=== PATIENT | female | born 1960 | race Caucasian/White ===

== ENCOUNTER 2016-09-12 11:20 | Emergency (ER) | payer BC ==
[~2016-09-12] VITALS: Ht 162.6 cm; Wt 62.1 kg
[~2016-09-12 11:20] MED LIST: ACHD5005 PO; AMOX500C2 PO; ASP81TEC PO; DIPH25TA82 PO; FLUT16SP22 NS; HYDR-2856 PO; HYDR-34 PO; HYDR-3812 PO; IBP200T PO; LRT10T PO; METH4TAB PO; PNT40TEC PO; PRD10T PO; [UNRECOGNIZED DRUG - CODE] TP
--- NOTE | 2016-09-12 11:35 | ED Chest Pain ---
General Stated Complaint: CHEST PAIN Source: patient Exam Limitations: no limitations History of Present Illness Time seen by provider: 11:32 Initial Comments Sent to ER from Dr. Dr. Riddle's office with reports of chest pain. The chest pain is been present for several months. She denies any shortness of breath or nausea. No personal history of heart disease but her parents have a history of heart disease. She does smoke about 7 cigarettes per day. The pain is not worsened with exertion, however it is worsened with palpation. Aleve seems to help with the pain Timing/Duration: intermittent Severity/Quality: moderate Location: central Radiation: no radiation ASA po CATALOGING ASSISTANT: No NTG SL CATALOGING ASSISTANT: No Allergies and Home Medications Allergies Coded Allergies: No Known Drug Allergies (Verified , 08/08/07) Home Medications Aspirin 81 Mg Tabec, 81 MG PO DAILY, (Reported) Hydrocodone/Acetaminophen 1 Each Tablet, 1 EACH PO Q4H PRN for PAIN, #30 Prescribed by: YAKELIN GARCÍA on 05/12/15 1045 Review of Systems Constitutional: see HPI, No chills, No dizziness, No fever, No malaise, No weakness EENTM: No Symptoms Reported Respiratory: No Symptoms Reported, Denies Cough, Denies Orthopnea, Denies Shortness of Air, Denies SOA With Exertion, Denies SOA at Rest Cardiovascular: See HPI, Chest Pain, Denies Edema, Denies Irregular Heart Rate , Denies Lightheadedness, Denies Palpitations, Denies Syncope Gastrointestinal: No Symptoms Reported Genitourinary: No Symptoms Reported Musculoskeletal: no symptoms reported Skin: no symptoms reported Psychiatric/Neurological: No Symptoms Reported Endocrine: No Symptoms Reported Hematologic/Lymphatic: No Symptoms Reported Past Nurfeir-Njpfab-Arekwx Hx Patient Social History Recent Foreign Travel: No Contact w/Someone Who Travel: No Immunizations Up To Date Tetanus Booster (TDap): Unknown Date of Pneumonia Vaccine: Dec 24, 2014 Surgeries HX Surgeries: Yes Respiratory Hx Respiratory Disorders: No Cardiovascular Hx Cardiac Disorders: No Neurological Hx Neurological Disorders: No Reproductive System Hx Reproductive Disorders: No 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 Genitourinary Hx Genitourinary Disorders: No Gastrointestinal Hx Gastrointestinal Disorders: Yes Gastrointestinal Disorders: Abdominal Hernia Musculoskeletal Hx Musculoskeletal Disorders: No Endocrine Hx Endocrine Disorders: No HEENT HX ENT Disorders: Yes (GLASSES) HEENT Disorders: Cataract Cancer Hx Cancer: No Psychosocial Hx Psychiatric Problems: No Integumentary HX Skin/Integumentary Disorder: No Blood Transfusions Hx Blood Disorders: No Family Medical History Significant Family History: Heart Disease Physical Exam Vital Signs Capillary Refill : General Appearance: No Apparent Distress, WD/WN HEENT: PERRL/EOMI, TMs Normal Neck: Full Range of Motion, Normal Inspection Respiratory: Normal Breath Sounds, No Accessory Muscle Use, No Respiratory Distress Cardiovascular: Regular Rate, Rhythm, Normal Peripheral Pulses, Other (left sternal border fourth intercostal space very tender to palpation and this is the pain that she's been experiencing she states) Gastrointestinal: Non Tender, Soft Extremity: Normal Capillary Refill, Normal Inspection Neurologic/Psychiatric: Alert, Oriented x3 Skin: Normal Color, Warm/Dry Progress/Results/Core Measures Results/Orders My Orders Orders - ODALIS MAYS APRN Cbc With Automated Diff (09/12/16 11:31) Comprehensive Metabolic Panel (09/12/16 11:31) Troponin I (09/12/16 11:31) Progress Note : Progress Note Her EKG is unchanged from prior with no ST segment changes. Departure Impression Impression: Primary Impression: Costochondritis Disposition: 01 HOME, SELF-CARE Condition: Stable Departure-Patient Inst. Decision time for Depature: 11:35 Referrals: GILSON RIDDLE DO (PCP/Family) Primary Care Physician Patient Instructions: Costochondritis (DC) Add. Discharge Instructions: 1. Continue to take Aleve as needed for pain 2. Follow-up with Dr. Dr. Riddle 3. Return to ER for any worsening Copy Copies To 1: GILSON RIDDLE PETER J APRN Sep 12, 2016 11:35
[2016-09-12 11:37] LABS: BASOPHILS % (AUTO) 0 % (0-10); EOSINOPHILS # (AUTO) 0.4 10^3/uL (0.0-0.3); EOSINOPHILS % (AUTO) 8 % (0-10); LYMPHOCYTES # (AUTO) 1.2 X 10^3 (1.0-4.0); LYMPHOCYTES % (AUTO) 26 % (12-44); MEAN CORPUSCULAR HEMOGLOBIN 30 PG (25-34); MEAN CORPUSCULAR HGB CONC 34 G/DL (32-36); MEAN CORPUSCULAR VOLUME 88 FL (80-99); MEAN PLATELET VOLUME 9.3 FL (7.4-10.4); MONOCYTES # (AUTO) 0.3 X 10^3 (0.0-1.0); MONOCYTES % (AUTO) 5 % (0-12); NEUTROPHILS # (AUTO) 2.9 X 10^3 (1.8-7.8); NEUTROPHILS % (AUTO) 61 % (42-75); PLATELET COUNT 185 10^3/uL (130-400); RED BLOOD COUNT 4.14 10^6/uL (4.35-5.85); RED CELL DISTRIBUTION WIDTH 11.8 % (10.0-14.5); WHITE BLOOD COUNT 4.8 10^3/uL (4.3-11.0)
--- NOTE | 2016-09-12 11:53 | Diagnostic Imaging Report ---
PA and lateral views of the chest Indication: Chest pain Findings: The lungs are clear. The heart size is normal. There is no effusion or pneumothorax The mediastinum and jannie appear unremarkable. Impression: Unremarkable study. Dictated by: Dictated on workstation # [id number]
[2016-09-12 11:58] LABS: ALANINE AMINOTRANSFERASE 11 U/L (0-55); ALBUMIN 4.2 GM/DL (3.2-4.5); ANION GAP 9 MMOL/L (5-14); ASPARTATE AMINO TRANSFERASE 17 U/L (5-34); BILIRUBIN,TOTAL 0.7 MG/DL (0.1-1.0); BLOOD UREA NITROGEN 11 MG/DL (7-18); BUN/CREATININE RATIO 13 (0-20); CALCIUM 9.4 MG/DL (8.5-10.1); CARBON DIOXIDE 25 MMOL/L (21-32); CHLORIDE 108 MMOL/L (98-107); CREATININE SERUM 0.88 MG/DL (0.60-1.30); GFR ESTIMATED > 60; GLUCOSE 104 MG/DL (70-105); HEMOLYSIS 6 (-100-29); ICTERUS 0.8 (-100-1.9); LIPEMIA 2 (-100-49); POTASSIUM 3.5 MMOL/L (3.6-5.0); SODIUM 142 MMOL/L (135-145); TOTAL PROTEIN 7.4 GM/DL (6.4-8.2)
[2016-09-12 12:10] LABS: TROPONIN I < 0.30 NG/ML (<0.30)
[2016-09-12 12:35] VITALS: BP 143/77
--- OUTSIDE RECORDS SUMMARY | 2016-09-14 16:16 | XMS REPORT | Continuity of Care Document ---
Author Author [facility] Address Unknown Phone Unavailable Allergies Active Description Code Type Severity Reaction Onset Reported/Identified Relationship to Patient Clinical Status Yes No Known Drug Allergies [id number] Drug Allergy Unknown N/ A 08/08/2007 Medications Problems Date Dx Coded Attending Type Code Diagnosis Diagnosed By 05/13/2008 BROOKLYN INGRAM DO K 354.0 CARPAL TUNNEL SYNDROME 05/13/2008 BROOKLYN INGRAM DO K 536.8 DYSPEPSIA 05/13/2008 BROOKLYN INGRAM DO K 565.0 ANAL FISSURE 05/13/2008 MIGDALIA BEAUCHAMP APRN R 354.0 CARPAL TUNNEL SYNDROME 05/13/2008 MIGDALIA BEAUCHAMP APRN R 536.8 DYSPEPSIA 05/13/2008 QUYNH TAMEZ MIGDALIA R 565.0 ANAL FISSURE 05/13/2008 BROOKLYN INGRAM DO K 354.0 CARPAL TUNNEL SYNDROME 05/13/2008 BROOKLYN INGRAM DO K 536.8 DYSPEPSIA 05/13/2008 RUTH INGRAM DOA K 565.0 ANAL FISSURE 05/13/2008 VIVIAN BEAUCHAMP APRNINA R 354.0 CARPAL TUNNEL SYNDROME 05/13/2008 VIVIAN BEAUCHAMP APRNINA R 536.8 DYSPEPSIA 05/13/2008 VIVIAN BEAUCHAMP APRNINA R 565.0 ANAL FISSURE 12/18/2009 Ot 521.00 12/18/2009 Ot 525.9 10/09/2011 Ot 782.1 10/09/2011 Ot 995.3 03/12/2012 Ot 924.20 03/12/2012 Ot 959.7 03/12/2012 Ot E000.8 03/12/2012 Ot E880.9 07/30/2012 BENJAMIN CAMARA, SAIDA Dacosta Ot 305.1 07/30/2012 BENJAMIN CAMARA, SAIDA Dacosta Ot 599.0 07/30/2012 BENJAMIN CAMARA, SAIDA Dacosta Ot 787.01 07/30/2012 BENJAMIN CAMARA, SAIDA Dacosta Ot 789.03 03/17/2013 INGRAM DO, BROOKLYN K 305.1 TOBACCO ABUSE 03/17/2013 INGRAM DO, BROOKLYN K 786.05 SHORTNESS OF BREATH 03/17/2013 INGRAM DO, BROOKLYN K 786.50 CHEST PAIN 03/17/2013 INGRAM DO, BROOKLYN K V17.49 FAM HX CAD (DISEASE) 03/17/2013 QUYNH MERCHANDISE EXECUTIVE, MIGDALIA R 305.1 TOBACCO ABUSE 03/17/2013 QUYNH MERCHANDISE EXECUTIVE, MIGDALIA R 786.05 SHORTNESS OF BREATH 03/17/2013 QUYNH MERCHANDISE EXECUTIVE, MIGDALIA R 786.50 CHEST PAIN 03/17/2013 QUYNH MERCHANDISE EXECUTIVE, MIGDALIA R V17.49 FAM HX CAD (DISEASE) 03/17/2013 INGRAM DO, BROOKLYN K 305.1 TOBACCO ABUSE 03/17/2013 INGRAM DO, BROOKLYN K 786.05 SHORTNESS OF BREATH 03/17/2013 INGRAM DO, BROOKLYN K 786.50 CHEST PAIN 03/17/2013 INGRAM DO, BROOKLYN K V17.49 FAM HX CAD (DISEASE) 03/17/2013 QUYNH TAMEZ MIGDALIA R 305.1 TOBACCO ABUSE 03/17/2013 QUYNH TAMEZ, MIGDALIA R 786.05 SHORTNESS OF BREATH 03/17/2013 QUYNH MERCHANDISE EXECUTIVE, MIGDALIA R 786.50 CHEST PAIN 03/17/2013 QUYNH TAMEZ MIGDALIA R V17.49 FAM HX CAD (DISEASE) 04/17/2013 ROSY CAMARA [facility], ALI FACP CCDS Ot 276.8 04/17/2013 ROSY CAMARA [facility], ALI FACP CCDS Ot 305.1 04/17/2013 ROSY CAMARA [facility], ALI FACP CCDS Ot 786.50 04/17/2013 ROSY CAMARA [facility], ALI FACP CCDS Ot V03.82 04/17/2013 ROSY CAMARA [facility], ALI FACP CCDS Ot V04.81 04/17/2013 ROSY CAMARA [facility], ALI FACP CCDS Ot V17.3 04/30/2013 MIGDALIA BEAUCHAMP APRN 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 04/30/2013 INGRAM DO, BROOKLYN 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 04/30/2013 VIVIAN BEAUCHAMP APRNINA 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 11/19/2013 VIVIAN BEAUCHAMP APRNINA 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 05/04/2015 ROSY CAMARA FACJOEY FACP CCDS Ot 786.50 05/04/2015 MIGDALIA BEAUCHAMP APRN Ot 793.11 05/12/2015 SUDARSHAN CAMARA, NEO Hernández Ot G56.01 05/12/2015 SUDARSHAN CAMARA, NEO Hernández Ot Z11.2 Procedures Code Description [place] [address] EKG, TRACING (IN-HOUSE) 03/17/2013 52474 OXIMETRY 2012 Cardiolog Joey Pena 03/20/2013 00331 ECHO 2D 2013 38510 XRAY CHEST 2 VIEW 11/06/2013 65093 EKG, TRACING 14748 LIPID PANEL 11/06 04367 MAGNESIUM 2013 74003 CBC 11/06/2013 63812 CMP 11/06/2013 1225771 GFR CALC (RESULT ONLY) 11/06/2013 86871 TSH 11/06/2013 24040 MAMMOGRAM, SCREENING 11/12/[address] CHEST W/DYE 23090 NUCLEAR STRESS TESTING 11/19/2013 22938 OXIMETRY 2013 Results Test Result Range Complete blood count (CBC) with automated white blood cell (WBC) differential - 09/12/16 11:27 Blood leukocytes automated count (number/volume) 4.8 10*3/ uL 4.3-11.0 Blood erythrocytes automated count (number/volume) 4.14 10*6 /uL 4.35-5.85 Venous blood hemoglobin measurement (mass/volume) 12.4 g/dL 11.5-16.0 Blood hematocrit (volume fraction) 36 % 35-52 Automated erythrocyte mean corpuscular volume 88 [foz_us] 80-99 Automated erythrocyte mean corpuscular hemoglobin (mass per erythrocyte) 30 pg 25-34 Automated erythrocyte mean corpuscular hemoglobin concentration measurement ( mass/volume) 34 g/dL 32-36 Automated erythrocyte distribution width ratio 11.8 % 10.0-14.5 Automated blood platelet count (count/volume) 185 10*3/uL 130-400 Automated blood platelet mean volume measurement 9.3 [foz_us ] 7.4-10.4 Automated blood neutrophils/100 leukocytes 61 % 42-75 Automated blood lymphocytes/100 leukocytes 26 % 12-44 Blood monocytes/100 leukocytes 5 % 0-12 Automated blood eosinophils/100 leukocytes 8 % 0-10 Automated blood basophils/100 leukocytes 0 % 0-10 Blood neutrophils automated count (number/volume) 2.9 10*3 1.8-7.8 Blood lymphocytes automated count (number/volume) 1.2 10*3 1.0-4.0 Blood monocytes automated count (number/volume) 0.3 10*3 0.0-1.0 Automated eosinophil count 0.4 10*3/uL 0.0-0.3 Automated blood basophil count (count/volume) 0.0 10*3/uL 0.0-0.1 Comprehensive metabolic panel - 09/12/16 11:27 Serum or plasma sodium measurement (moles/volume) 142 mmol/ L 135-145 Serum or plasma potassium measurement (moles/volume) 3.5 mmol/L 3.6-5.0 Serum or plasma chloride measurement (moles/volume) 108 mmol /L 98-107 Carbon dioxide 25 mmol/L 21-32 Serum or plasma anion gap determination (moles/volume) 9 mmol/L 5-14 Serum or plasma urea nitrogen measurement (mass/volume) 11 mg/dL 7-18 Serum or plasma creatinine measurement (mass/volume) 0.88 mg /dL 0.60-1.30 Serum or plasma urea nitrogen/creatinine mass ratio 13 0-20 Serum or plasma creatinine measurement with calculation of estimated glomerular filtration rate > NRG Serum or plasma glucose measurement (mass/volume) 104 mg/dL 70-105 Serum or plasma calcium measurement (mass/volume) 9.4 mg/dL 8.5-10.1 Serum or plasma total bilirubin measurement (mass/volume) 0.7 mg/dL 0.1-1.0 Serum or plasma alkaline phosphatase measurement (enzymatic activity/volume) 68 U/L 40-136 Serum or plasma aspartate aminotransferase measurement (enzymatic activity/ volume) 17 U/L 5-34 Serum or plasma alanine aminotransferase measurement (enzymatic activity/volume ) 11 U/L 0-55 Serum or plasma protein measurement (mass/volume) 7.4 g/dL 6.4-8.2 Serum or plasma albumin measurement (mass/volume) 4.2 g/dL 3.2-4.5 Serum or plasma troponin i.cardiac measurement (mass/volume) - 06/20/17 11:27 Serum or plasma troponin i.cardiac measurement (mass/volume) < ng/mL <0.30 Encounters ACCT No. Visit Date/Time Discharge Status Pt. Type Provider Facility Loc./Unit Complaint [id number] 11/19/2013 08:24:00 11/19/2013 23: 59:59 [facility] Outpatient MIGDALIA BEAUCHAMP APRN [id number] 11/12/2013 08:21:00 11/12/2013 23: 59:59 [facility] Outpatient BROOKLYN INGRAM DO [id number] 04/30/2013 08:52:00 04/30/2013 23: 59:59 [facility] Outpatient MIGDALIA BEAUCHAMP APRN [id number] 03/17/2013 14:48:00 03/17/2013 23: 59:59 [facility] Outpatient BROOKLYN INGRAM DO
== END 2016-09-12 12:35 | disposition home or self-care (01) ==
LOC: EDUNIT# 11:20 → ER 11:23
DX: M94.0 Chondrocostal junction syndrome [Tietze] (principal); F17.210 Nicotine dependence, cigarettes, uncomplicated; Z87.898 Personal history of other specified conditions; Z82.49 Family history of ischemic heart disease and other diseases of the circulatory system; Z79.82 Long term (current) use of aspirin
CPT/HCPCS: 36415; 71020; 80053; 84484; 85025; 93005

== ENCOUNTER 2017-10-01 19:42 | Emergency (ER) | payer BC, OTHER ==
[~2017-10-01] VITALS: Ht 162.6 cm; Wt 62.4 kg
[~2017-10-01 19:42] MED LIST changes: -HYDR-3812 PO
--- NOTE | 2017-10-01 19:55 | ED Chest Pain ---
General Chief Complaint: Chest Pain Stated Complaint: POSS REACTION TO NEW MED Nursing Triage Note: patient reports chest pain radiating to L neck starting at about 1500 Nursing Sepsis Screen: No Definite Risk Source: patient Exam Limitations: no limitations History of Present Illness Date Seen by Provider: Oct 01, 2017 Time Seen by Provider: 19:52 Initial Comments to ER complaint by her daughter with reports of left sided chest pain. She is concerned this may be a reaction to prednisone that she started earlier today, prescribed by [facility] for an itchy rash to face and legs believed to be poison mejia. She took the prednisone at about 2:30 and at about 3:30 she developed this left-sided chest and neck pain. The pain is to the left side of the chest, sharp in nature, worsens with deep breathing.. She has no known personal history of heart disease but she does have family history of heart disease.She is a smoker of about one pack of cigarettes per day.She's had no associated symptoms such as shortness of breath diaphoresis or nausea. 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 NTG SL OIL WELL GUN PERFORATOR OPERATOR: No Allergies and Home Medications Allergies Coded Allergies: No Known Drug Allergies (Verified , 08/08/07) Patient Home Medication List Home Medication List Reviewed: Yes Review of Systems Constitutional: see HPI EENTM: No Symptoms Reported Respiratory: No Symptoms Reported Cardiovascular: See HPI, Chest Pain Gastrointestinal: No Symptoms Reported Genitourinary: No Symptoms Reported Musculoskeletal: no symptoms reported Skin: no symptoms reported Past Milbdez-Ionthl-Xqgujv Hx Patient Social History Alcohol Use: Denies Use Recreational Drug Use: No Smoking Status: Current Everyday Smoker Type Used: Cigarettes 2nd Hand Smoke Exposure: Yes Recent Foreign Travel: No Contact w/Someone Who Travel: No Recent Infectious Disease Expo: No Recent Hopitalizations: No Immunizations Up To Date Tetanus Booster (TDap): Unknown Date of Pneumonia Vaccine: Dec 24, 2014 Seasonal Allergies Seasonal Allergies: No Past Medical History Surgeries: Yes (HYSTERECTOMY) Respiratory: No Cardiac: No Neurological: No Reproductive Disorders: No 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 Sexually Transmitted Disease: Yes Genitourinary: No Gastrointestinal: Yes Abdominal Hernia Musculoskeletal: No Endocrine: No HEENT: No Cataract Cancer: No Psychosocial: No Integumentary: No Blood Disorders: No Family Medical History Heart Disease Physical Exam Vital Signs Vital Signs - First Documented 10/01/17 10/01/17 19:47 19:55 Temp 98.1 Pulse 75 Resp 15 B/P (MAP) 159/77 (104) Pulse Ox 100 O2 Delivery Room Air Capillary Refill : Less Than 3 Seconds Height, Weight, BMI Height: 5', 4.00" Weight: 137lbs 8.0oz, [id number] Method:Stated ,23.51BMI General Appearance: No Apparent Distress, WD/WN HEENT: PERRL/EOMI, TMs Normal Neck: Full Range of Motion, Normal Inspection Respiratory: Lungs Clear, Normal Breath Sounds, No Accessory Muscle Use, No Respiratory Distress, Other (her left chest wall laterally over the fifth and sixth intercostal spaces very tender to palpation and this does reproduce the pain she's been having.) Cardiovascular: Regular Rate, Rhythm, Normal Peripheral Pulses Gastrointestinal: Normal Bowel Sounds, Non Tender, Soft Extremity: Normal Capillary Refill, Normal Inspection Neurologic/Psychiatric: Alert, Oriented x3 Skin: Normal Color, Warm/Dry Progress/Results/Core Measures Results/Orders Lab Results Laboratory Tests Test 10/01/17 19:50 Range/Units White Blood Count 5.7 4.3-11.0 10^3/uL Red Blood Count 4.21 L 4.35-5.85 10^6/uL Hemoglobin 13.0 11.5-16.0 G/DL Hematocrit 37 35-52 % Mean Corpuscular Volume 87 80-99 FL Mean Corpuscular Hemoglobin 31 25-34 PG Mean Corpuscular Hemoglobin Concent 35 32-36 G/DL Red Cell Distribution Width 12.6 10.0-14.5 % Platelet Count 205 130-400 10^3/uL Mean Platelet Volume 9.5 7.4-10.4 FL Neutrophils (%) (Auto) 85 H 42-75 % Lymphocytes (%) (Auto) 12 12-44 % Monocytes (%) (Auto) 1 0-12 % Eosinophils (%) (Auto) 1 0-10 % Basophils (%) (Auto) 0 0-10 % Neutrophils # (Auto) 4.9 1.8-7.8 X 10^3 Lymphocytes # (Auto) 0.7 L 1.0-4.0 X 10^3 Monocytes # (Auto) 0.1 0.0-1.0 X 10^3 Eosinophils # (Auto) 0.1 0.0-0.3 10^3/uL Basophils # (Auto) 0.0 0.0-0.1 10^3/uL Prothrombin Time 13.8 12.2-14.7 SEC INR Comment 1.1 0.8-1.4 Activated Partial Thromboplast Time 30 24-35 SEC Sodium Level 142 135-145 MMOL/L Potassium Level 4.0 3.6-5.0 MMOL/L Chloride Level 108 H 98-107 MMOL/L Carbon Dioxide Level 24 21-32 MMOL/L Anion Gap 10 5-14 MMOL/L Blood Urea Nitrogen 13 7-18 MG/DL Creatinine 1.02 0.60-1.30 MG/DL Estimat Glomerular Filtration Rate 56 BUN/Creatinine Ratio 13 Glucose Level 127 H 70-105 MG/DL Calcium Level 9.9 8.5-10.1 MG/DL Magnesium Level 2.5 H 1.8-2.4 MG/DL Total Bilirubin 0.6 0.1-1.0 MG/DL Aspartate Amino Transf (AST/SGOT) 17 5-34 U/L Alanine Aminotransferase (ALT/SGPT) 12 0-55 U/L Alkaline Phosphatase 77 40-136 U/L Myoglobin 54.9 10.0-92.0 NG/ML Troponin I < 0.30 <0.30 NG/ML Total Protein 7.9 6.4-8.2 GM/DL Albumin 4.7 H 3.2-4.5 GM/DL My Orders Orders - ODALIS MAYS CONSUMER RELATIONS SPECIALIST Cbc With Automated Diff (10/01/17 19:51) Magnesium (10/01/17 19:51) Chest 1 View, Ap/Pa Only (10/01/17 19:51) Ekg Tracing (10/01/17 19:51) Cardiac Profile 1 (10/01/17 19:51) Comprehensive Metabolic Panel (10/01/17 19:51) Myoglobin Serum (10/01/17 19:51) Protime With Inr (10/01/17 19:51) Partial Thromboplastin Time (10/01/17 19:51) O2 (10/01/17 19:51) Monitor-Rhythm Ecg Trace Only (10/01/17 19:51) Lipid Panel (10/02/17 06:00) Aspirin Chewable Tablet (Baby Aspirin Ch (10/01/17 20:00) Saline Lock/Iv-Start (10/01/17 19:51) Medications Given in ED Current Medications Medications Dose Ordered Sig/Mirta Route Start Time Stop Time Status Last Admin Dose Admin Aspirin 324 mg ONCE ONCE PO 10/01/17 20:00 10/01/17 20:01 DC 10/01/17 19:55 324 MG Vital Signs/I&O 10/01/17 10/01/17 10/01/17 19:47 19:55 19:56 Temp 98.1 Pulse 75 Resp 15 B/P (MAP) 159/77 (104) Pulse Ox 100 O2 Delivery Room Air Room Air Blood Pressure Mean: 104 Diagnostic Imaging Diagonstic Imaging: Xray Plain Films/CT/US/NM/MRI: chest Comments NAME: JOSE LINARES [facility] REC#: [id number] PT STATUS: REG ER : 1960 PHYSICIAN: ODALIS MAYS CONSUMER RELATIONS SPECIALIST ADMIT DATE: 10/01/17/ER Signed Date of Exam:10/01/17 CHEST 1 VIEW, AP/PA ONLY INDICATION: Chest pain Frontal chest obtained at 8:03 p.m. and compared to 09/12/16. Heart and mediastinal silhouette are normal in appearance. The lungs are clear. There is no pneumothorax or pleural fluid. IMPRESSION: Negative chest. Dictated by: Dictated on workstation # [id number] Dict: 10/01/172012 Trans: 10/01/172018 [id number] [id number] Interpreted by: SAIDA REYEZ MD Electronically signed by: SAIDA REYEZ MD 10/01/17 2019 Departure Communication (Admissions) her chest pain has been constant for 4 hours and she still has a negative troponin. It is worsened with deep breathing and with palpation. Impression Primary Impression: Chest pain Disposition: 01 HOME, SELF-CARE Condition: Stable Departure-Patient Inst. Decision time for Depature: 20:25 Referrals: GILSON RIDDLE DO (PCP/Family) Primary Care Physician CODI GALLEGOS MD FACP FACC CCDS Vernell DNA MD, BASHAR J MD Patient Instructions: Chest Pain (DC) Add. Discharge Instructions: 1. Call one of the cardiologists tomorrow to make an appointment to be seen for further evaluation. Return to ER for any worsening chest pain, shortness of breath, nausea, sweating or any other concerns. You may stop taking the prednisone and just apply topical steroids. All discharge instructions reviewed with patient and/or family. Voiced understanding. ODALIS MAYS APRN Oct 01, 2017 19:55
[2017-10-01] MEDS ORDERED: PRD10T (19:57)
[2017-10-01] MEDS ORDERED: HYDR453.3 (19:57)
[2017-10-01 19:58] LABS: BASOPHILS % (AUTO) 0 % (0-10); EOSINOPHILS # (AUTO) 0.1 10^3/uL (0.0-0.3); EOSINOPHILS % (AUTO) 1 % (0-10); HEMATOCRIT 37 % (35-52); LYMPHOCYTES # (AUTO) 0.7 X 10^3 (1.0-4.0); LYMPHOCYTES % (AUTO) 12 % (12-44); MEAN CORPUSCULAR HEMOGLOBIN 31 PG (25-34); MEAN CORPUSCULAR HGB CONC 35 G/DL (32-36); MEAN CORPUSCULAR VOLUME 87 FL (80-99); MEAN PLATELET VOLUME 9.5 FL (7.4-10.4); MONOCYTES # (AUTO) 0.1 X 10^3 (0.0-1.0); MONOCYTES % (AUTO) 1 % (0-12); NEUTROPHILS # (AUTO) 4.9 X 10^3 (1.8-7.8); NEUTROPHILS % (AUTO) 85 % (42-75); PLATELET COUNT 205 10^3/uL (130-400); RED BLOOD COUNT 4.21 10^6/uL (4.35-5.85); RED CELL DISTRIBUTION WIDTH 12.6 % (10.0-14.5); WHITE BLOOD COUNT 5.7 10^3/uL (4.3-11.0)
[2017-10-01] MEDS ORDERED: ASPIRIN 81 MG CHEW (CHILDREN'S ASA) PO ONE (20:00)
[2017-10-01 20:16] LABS: ALANINE AMINOTRANSFERASE 12 U/L (0-55); ALBUMIN 4.7 GM/DL (3.2-4.5); ALKALINE PHOSPHATASE 77 U/L (40-136); BILIRUBIN,TOTAL 0.6 MG/DL (0.1-1.0); BUN/CREATININE RATIO 13; CALCIUM 9.9 MG/DL (8.5-10.1); CARBON DIOXIDE 24 MMOL/L (21-32); CHLORIDE 108 MMOL/L (98-107); CREATININE SERUM 1.02 MG/DL (0.60-1.30); GFR ESTIMATED 56; GLUCOSE 127 MG/DL (70-105); MAGNESIUM 2.5 MG/DL (1.8-2.4); SODIUM 142 MMOL/L (135-145); TOTAL PROTEIN 7.9 GM/DL (6.4-8.2)
--- NOTE | 2017-10-01 20:16 | Diagnostic Imaging Report ---
INDICATION: Chest pain Frontal chest obtained at 8:03 p.m. and compared to 09/12/16. Heart and mediastinal silhouette are normal in appearance. The lungs are clear. There is no pneumothorax or pleural fluid. IMPRESSION: Negative chest. Dictated by: Dictated on workstation # [id number]
[2017-10-01 20:20] LABS: INR 1.1 (0.8-1.4); PROTHROMBIN TIME PATIENT 13.8 SEC (12.2-14.7)
[2017-10-01 20:22] LABS: MYOGLOBIN SERUM 54.9 NG/ML (10.0-92.0)
[2017-10-01 20:29] VITALS: BP 123/69
== END 2017-10-01 20:33 | disposition home or self-care (01) ==
LOC: EDUNIT# 19:42 → ER 19:43
DX: R07.89 Other chest pain (principal); F17.210 Nicotine dependence, cigarettes, uncomplicated; Z90.710 Acquired absence of both cervix and uterus
CPT/HCPCS: 36415; 71045; 80053; 83735; 83874; 84484; 85025; 85610; 85730; 93005; 93041

== ENCOUNTER 2018-03-27 05:56 | Outpatient (CLI) | payer BC ==
[~2018-03-27] VITALS: Ht 162.6 cm; Wt 62.4 kg
[~2018-03-27 05:56] MED LIST changes: +HYDR453.3; +PRD10T
== END 2018-03-27 13:28 | disposition home or self-care (01) ==
LOC: PREOP 05:56
PROVIDERS: ATTEND Surgery
DX: Z01.818 Encounter for other preprocedural examination (principal)

== ENCOUNTER 2018-04-02 09:06 | Day surgery (SDC) | payer BC ==
[~2018-04-02] VITALS: Ht 162.6 cm; Wt 62.4 kg
[2018-04-02 09:10] VITALS: BP 144/80
[2018-04-02] MEDS ORDERED: LACTATED RINGERS 1,000 ML IV ONE (09:12)
--- OUTSIDE RECORDS SUMMARY | 2018-04-02 09:13 | XMS REPORT | Continuity of Care Document ---
Author Author [facility] Address Unknown Phone Unavailable Allergies Active Description Code Type Severity Reaction Onset Reported/Identified Relationship to Patient Clinical Status Yes No Known Drug Allergies [id number] Drug Allergy Unknown N/A 03/27/2018 Medications There is no data. Problems Date Dx Coded Attending Type Code Diagnosis Diagnosed By 05/13/2008 BROOKLYN INGRAM DO 354.0 CARPAL TUNNEL SYNDROME 05/13/2008 BROOKLYN INGRAM DO 536.8 DYSPEPSIA 05/13/2008 BROOKLYN INGRAM DO K 565.0 ANAL FISSURE 05/13/2008 MIGDALIA BEAUCHAMP APRN R 354.0 CARPAL TUNNEL SYNDROME 05/13/2008 MIGDALIA BEAUCHAMP APRN R 536.8 DYSPEPSIA 05/13/2008 VIVIAN BEAUCHAMP APRNINA R 565.0 ANAL FISSURE 05/13/2008 BROOKLYN INGRAM DO K 354.0 CARPAL TUNNEL SYNDROME 05/13/2008 BROOKLYN INGRAM DO K 536.8 DYSPEPSIA 05/13/2008 BROOKLYN INGRAM DO K 565.0 ANAL FISSURE 05/13/2008 MIGDALIA BEAUCHAMP APRN R 354.0 CARPAL TUNNEL SYNDROME 05/13/2008 MIGDALIA BEAUCHAMP APRN R 536.8 DYSPEPSIA 05/13/2008 MIGDALIA BEAUCHAMP APRN R 565.0 ANAL FISSURE 12/18/2009 Ot 521.00 12/18/2009 Ot 525.9 10/09/2011 Ot 782.1 10/09/2011 Ot 995.3 03/12/2012 Ot 924.20 03/12/2012 Ot 959.7 03/12/2012 Ot E000.8 03/12/2012 Ot E880.9 07/30/2012 BENJAMIN CAMARA, SAIDA Dacosta Ot 305.1 07/30/2012 BENJAMIN CAMARA, SAIDA Dacosta Ot 599.0 07/30/2012 BENJAMIN CAMARA, SAIDA Dacosta Ot 787.01 07/30/2012 BENJAMIN CAMARA, SAIDA S Ot 789.03 03/17/2013 INGRAM DO, BROOKLYN K 305.1 TOBACCO ABUSE 03/17/2013 INGRAM DO, BROOKLYN K 786.05 SHORTNESS OF BREATH 03/17/2013 INGRAM DO, BROOKLYN K 786.50 CHEST PAIN 03/17/2013 INGRAM DO, BROOKLYN K V17.49 FAM HX CAD (DISEASE) 03/17/2013 QUYNH STUNT PERSON, MIGDALIA R 305.1 TOBACCO ABUSE 03/17/2013 QUYNH STUNT PERSON, MIGDALIA R 786.05 SHORTNESS OF BREATH 03/17/2013 QUYNH STUNT PERSON, MIGDALIA R 786.50 CHEST PAIN 03/17/2013 QUYNH STUNT PERSON, MIGDALIA R V17.49 FAM HX CAD (DISEASE) 03/17/2013 INGRAM DO, BROOKLYN K 305.1 TOBACCO ABUSE 03/17/2013 INGRAM DO, BROOKLYN K 786.05 SHORTNESS OF BREATH 03/17/2013 INGRAM DO, BROOKLYN K 786.50 CHEST PAIN 03/17/2013 INGRAM DO, BROOKLYN K V17.49 FAM HX CAD (DISEASE) 03/17/2013 QUYNH STUNT PERSON, MIGDALIA R 305.1 TOBACCO ABUSE 03/17/2013 QUYNH STUNT PERSON, MIGDALIA R 786.05 SHORTNESS OF BREATH 03/17/2013 QUYNH TAMEZ, MIGDALIA R 786.50 CHEST PAIN 03/17/2013 QUYNH TAMEZ MIGDALIA R V17.49 FAM HX CAD (DISEASE) 04/17/2013 ROSY CAMARA [facility], ALI FACP CCDS Ot 276.8 04/17/2013 ROSY CAMARA [facility], ALI FACP CCDS Ot 305.1 04/17/2013 ROSY CAMARA [facility], ALI FACP CCDS Ot 786.50 04/17/2013 ROSY CAMARA FAC, ALI FACP CCDS Ot V03.82 04/17/2013 ROSY CAMARA FAC, ALI FACP CCDS Ot V04.81 04/17/2013 ROSY CAMARA [facility], ALI FACP CCDS Ot V17.3 04/30/2013 VIVIAN BEAUCHAMP APRNINA 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 04/30/2013 INGRAM DO, BROOKLYN 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 04/30/2013 QUYNH TAMEZ MIGDALIA 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 11/19/2013 MIGDALIA BEAUCHAMP APRN 793.11 SOLITARY PULMONARY NODULE 05/04/2015 ROSY CAMARA [facility], ALI FACP CCDS Ot 786.50 05/04/2015 MIGDALIA BEAUCHAMP APRN Ot 793.11 05/12/2015 SUDARSHAN CAMARA, NEO Hernández Ot G56.01 CARPAL TUNNEL SYNDROME, RIGHT UPPER LIMB 05/12/2015 SUDARSHAN CAMARA, NEO Hernández Ot Z11.2 ENCOUNTER FOR SCREENING FOR OTHER BACTER 09/12/2016 ODALIS MAYS APRN Ot F17.210 NICOTINE DEPENDENCE, CIGARETTES, UNCOMPL 09/12/2016 ODALIS MAYS APRN Ot M94.0 CHONDROCOSTAL JUNCTION SYNDROME [TIETZE] 09/12/2016 ODALIS MAYS APRN Ot R07.9 CHEST PAIN, UNSPECIFIED 09/12/2016 ODALIS MAYS APRN Ot Z79.82 LONG-TERM (CURRENT) USE OF ASPIRIN 09/12/2016 ODALIS MAYS APRN Ot Z82.49 FAMILY HX OF ISCHEM HEART DIS AND OTH DI 09/12/2016 ODALIS MAYS APRN Ot Z87.898 PERSONAL HISTORY OF OTHER SPECIFIED COND 09/14/2016 ODALIS MAYS APRN Ot F17.210 NICOTINE DEPENDENCE, CIGARETTES, UNCOMPL 09/14/2016 ODALIS MAYS APRN Ot M94.0 CHONDROCOSTAL JUNCTION SYNDROME [TIETZE] 09/14/2016 ODALIS MAYS APRN Ot R07.9 CHEST PAIN, UNSPECIFIED 09/14/2016 ODALIS MAYS APRN Ot Z79.82 LONG-TERM (CURRENT) USE OF ASPIRIN 09/14/2016 ODALIS MAYS APRN Ot Z82.49 FAMILY HX OF ISCHEM HEART DIS AND OTH DI 09/14/2016 ODALIS MAYS APRN Ot Z87.898 PERSONAL HISTORY OF OTHER SPECIFIED COND 10/01/2017 ODALIS MAYS APRN Ot F17.210 NICOTINE DEPENDENCE, CIGARETTES, UNCOMPL 10/01/2017 DOALIS MAYS APRN Ot R07.89 OTHER CHEST PAIN 10/01/2017 ODALIS MAYS APRN Ot Z90.710 ACQUIRED ABSENCE OF BOTH CERVIX AND UTER 10/03/2017 ODALIS MAYS APRN Ot F17.210 NICOTINE DEPENDENCE, CIGARETTES, UNCOMPL 10/03/2017 ODALIS MAYS APRN Ot R07.89 OTHER CHEST PAIN 10/03/2017 ODALIS MAYS APRN Ot Z90.710 ACQUIRED ABSENCE OF BOTH CERVIX AND UTER 03/27/2018 ALEX SEPULVEDA DO Ot Z01.818 ENCOUNTER FOR OTHER PREPROCEDURAL EXAMIN Procedures Code Description [place] [address] EKG, TRACING (IN-HOUSE) 03/17/2013 95974 OXIMETRY 03/17/2013 Cardiolog Joey Gallegos 03/20/2013 28253 ECHO 2D 04/30/2013 61037 XRAY CHEST 2 VIEW 11/06/2013 14154 EKG, TRACING 11/06/2013 11318 LIPID PANEL 11/06/2013 56627 MAGNESIUM 11/06/2013 21924 CBC 11/06/2013 21150 CMP 11/06/2013 3728932 GFR CALC (RESULT ONLY) 11/06/2013 97681 TSH 11/06/2013 22483 MAMMOGRAM, SCREENING 11/12/[address] CHEST W/DYE 11/19/2013 32917 NUCLEAR STRESS TESTING 11/19/2013 02873 OXIMETRY 11/19/2013 Results Test Result Range Complete blood count (CBC) with automated white blood cell (WBC) differential - 09/12/16 11:27 Blood leukocytes automated count (number/volume) 4.8 10*3/uL 4.3-11.0 Blood erythrocytes automated count (number/volume) 4.14 10*6/uL 4.35-5.85 Venous blood hemoglobin measurement (mass/volume) 12.4 [...] Automated blood platelet mean volume measurement 9.3 [foz_us] 7.4-10.4 Automated blood neutrophils/100 leukocytes 61 % [...] Serum or plasma sodium measurement (moles/volume) 142 mmol/L 135-145 Serum or plasma potassium measurement (moles/volume) 3.5 mmol/L 3.6-5.0 Serum or plasma chloride measurement (moles/volume) 108 mmol/L 98-107 Carbon dioxide 25 mmol/L 21-32 Serum or plasma anion gap determination (moles/volume) 9 mmol/L 5-14 Serum or plasma urea nitrogen measurement (mass/volume) 11 mg/dL 7-18 Serum or plasma creatinine measurement (mass/volume) 0.88 mg/dL 0.60-1.30 Serum or plasma urea nitrogen/creatinine mass ratio 13 0 -20 Serum or plasma creatinine measurement with calculation [...] or plasma troponin i.cardiac measurement (mass/volume) - 09/12/16 11:27 Serum or plasma troponin i.cardiac measurement (mass/volume) < ng/ mL <0.30 Complete blood count (CBC) with automated white blood cell (WBC) differential - 10/01/17 19:50 Blood leukocytes automated count (number/volume) 5.7 10*3/uL 4.3-11.0 Blood erythrocytes automated count (number/volume) 4.21 10*6/uL 4.35-5.85 Venous blood hemoglobin measurement (mass/volume) 13.0 g/dL 11.5-16.0 Blood hematocrit (volume fraction) 37 % 35-52 Automated erythrocyte mean corpuscular volume 87 [foz_us] 80-99 Automated erythrocyte mean corpuscular hemoglobin (mass per erythrocyte) 31 pg 25-34 Automated erythrocyte mean corpuscular hemoglobin concentration measurement ( mass/volume) 35 g/dL 32-36 Automated erythrocyte distribution width ratio 12.6 % 10.0-14.5 Automated blood platelet count (count/volume) 205 10*3/uL 130-400 Automated blood platelet mean volume measurement 9.5 [foz_us] 7.4-10.4 Automated blood neutrophils/100 leukocytes 85 % 42-75 Automated blood lymphocytes/100 leukocytes 12 % 12-44 Blood monocytes/100 leukocytes 1 % 0-12 Automated blood eosinophils/100 leukocytes 1 % 0-10 Automated blood basophils/100 leukocytes 0 % 0-10 Blood neutrophils automated count (number/volume) 4.9 10*3 1.8-7.8 Blood lymphocytes automated count (number/volume) 0.7 10*3 1.0-4.0 Blood monocytes automated count (number/volume) 0.1 10*3 0.0-1.0 Automated eosinophil count 0.1 10*3/uL 0.0-0.3 Automated blood basophil count (count/volume) 0.0 10*3/uL 0.0-0.1 Comprehensive metabolic panel - 10/01/17 19:50 Serum or plasma sodium measurement (moles/volume) 142 mmol/L 135-145 Serum or plasma potassium measurement (moles/volume) 4.0 mmol/L 3.6-5.0 Serum or plasma chloride measurement (moles/volume) 108 mmol/L 98-107 Carbon dioxide 24 mmol/L 21-32 Serum or plasma anion gap determination (moles/volume) 10 mmol/L 5-14 Serum or plasma urea nitrogen measurement (mass/volume) 13 mg/dL 7-18 Serum or plasma creatinine measurement (mass/volume) 1.02 mg/dL 0.60-1.30 Serum or plasma urea nitrogen/creatinine mass ratio 13 NRG Serum or plasma creatinine measurement with calculation of estimated glomerular filtration rate 56 NRG Serum or plasma glucose measurement (mass/volume) 127 mg/dL 70-105 Serum or plasma calcium measurement (mass/volume) 9.9 mg/dL 8.5-10.1 Serum or plasma total bilirubin measurement (mass/volume) 0.6 mg/dL 0.1-1.0 Serum or plasma alkaline phosphatase measurement (enzymatic activity/volume) 77 U/L 40-136 Serum or plasma aspartate aminotransferase measurement (enzymatic activity/ volume) 17 U/L 5-34 Serum or plasma alanine aminotransferase measurement (enzymatic activity/volume ) 12 U/L 0-55 Serum or plasma protein measurement (mass/volume) 7.9 g/dL 6.4-8.2 Serum or plasma albumin measurement (mass/volume) 4.7 g/dL 3.2-4.5 Magnesium - 10/01/17 19:50 Magnesium 2.5 mg/dL 1.8-2.4 Serum or plasma troponin i.cardiac measurement (mass/volume) - 10/01/17 19:50 Serum or plasma troponin i.cardiac measurement (mass/volume) < ng/ mL <0.30 Myoglobin, serum - 10/01/17 19:50 Myoglobin, serum 54.9 ng/mL 10.0-92.0 PT panel in platelet poor plasma by coagulation assay - 10/01/17 19:50 Prothrombin time (PT) in platelet poor plasma by coagulation assay 13.8 s 12.2-14.7 INR in platelet poor plasma or blood by coagulation assay 1.1 0.8-1.4 Activated partial thromboplastin time (aPTT) in platelet poor plasma bycoagulation assay - 10/01/17 19:50 Activated partial thromboplastin time (aPTT) in platelet poor plasma bycoagulation assay 30 s 24-35 Encounters ACCT No. Visit Date/Time Discharge Status Pt. Type Provider Facility Loc./Unit Complaint [id number] 11/19/2013 08:24:00 11/19/2013 23:59:59 [facility] Outpatient MIGDALIA BEAUCHAMP APRN [id number] 11/12/2013 08:21:00 11/12/2013 23:59:59 [facility] Outpatient BROOKLYN INGRAM DO [id number] 04/30/2013 08:52:00 04/30/2013 23:59:59 CLS Outpatient MIGDALIA BEAUCHAMP APRN [id number] 03/17/2013 14:48:00 03/17/2013 23:59:59 CLS Outpatient BROOKLYN INGRAM DO [id number] 03/27/2018 05:56:00 03/27/2018 13:28:00 DIS Outpatient ALEX SEPULVEDA DO [facility] PREOP COLONOSCOPY/EGD [id number] 10/01/2017 19:43:00 10/01/2017 20:33:00 DIS Emergency ODALIS MAYS APRN [facility] ER POSS REACTION TO NEW MED [id number] 09/12/2016 11:23:00 09/12/2016 12:35:00 DIS Emergency ODALIS MAYS APRN [facility] ER CHEST PAIN [id number] 05/12/2015 08:04:00 05/12/2015 11:15:00 DIS Outpatient NEO HEATON MD [facility] RIGHT CARPEL TUNNEL SYNDROME [id number] 05/06/2015 11:08:00 05/06/2015 23:59:59 CLS Outpatient NEO HEATON MD [facility] PREOP [id number] 11/21/2013 12:18:00 11/21/2013 23:59:59 CLS Outpatient MIGDALIA BEAUCHAMP APRN [facility] RAD [id number] 04/25/2013 09:07:00 04/25/2013 23:59:59 CLS Outpatient JOEY GALLEGOS MD, FACC, FACP CCDS [facility] CARD [id number] 04/16/2013 20:30:00 04/17/2013 14:20:00 DIS Inpatient JOEY GALLEGOS MD, FACC, FACP CCDS [facility] CSD [id number] 07/30/2012 09:30:00 07/30/2012 14:30:00 DIS Inpatient SAIDA ALEXANDER MD [facility] SURGICAL [id number] 07/27/2012 10:33:00 07/27/2012 23:59:59 CLS Outpatient [id number] 04/02/2018 13:00:00 PEN Preadmit ALEX SEPULVEDA DO [facility] ENDO DYSPHAGIA/BLOOD IN STOOL [id number] 05/04/2015 09:35:00 Document Registration [id number] 05/04/2015 09:35:00 Document Registration [id number] 03/12/2012 13:26:00 Document Registration [id number] 10/09/2011 21:43:00 Document Registration [id number] 12/18/2009 08:37:00 Document Registration
[2018-04-02] MEDS ORDERED: LACTATED RINGERS 1,000 ML IV STA (09:19)
[2018-04-02] MEDS ORDERED: PROPOFOL INJECTION 50 ML IV ONE (09:26)
[2018-04-02] MEDS ORDERED: MIDAZOLAM 2 MG/2 ML (VERSED) VIAL ONE (09:26)
[2018-04-02] MEDS ORDERED: HURRICAINE EXT TUBE (BENZOCAINE) XX PRN (09:30)
--- NOTE | 2018-04-02 09:31 | Progress Note-Pre Operative ---
Pre-Operative Progress Note H&P Reviewed The H&P was reviewed, patient examined and no changes noted. Date Seen by Provider: Apr 02, 2018 Time Seen by Provider: 09: Date H&P Reviewed: Apr 02, 2018 Time H&P Reviewed: 09:31 Pre-Operative Diagnosis: dysphagia, epigastric abdomianl pain, bright red blood per rectum ALEX SEPULVEDA DO Apr 02, 2018 09:31
[2018-04-02] MEDS ORDERED: HURRICAINE EXT TUBE (BENZOCAINE) ONE (10:08)
[2018-04-02 10:10] VITALS: BP 131/73
--- NOTE | 2018-04-02 10:38 | Progress Note-Post Operative ---
Post-Operative Progess Note Surgeon (s)/Head Screen Worker (s) Surgeon ALEX SEPULVEDA DO Head Screen Worker: na Pre-Operative Diagnosis dysphagia, epigastric abdomianl pain, bright red blood per rectum Post-Operative Diagnosis small hiatal hernia, gastritis, large flat cecal polyp, descending colon polyp Procedure & Operative Findings Date of Procedure 04/02/18 Procedure Performed/Findings egd c biopsy, colonoscopy c cold biopsy cecum, hot bx polypectomy descending colon polyp Anesthesia Type per [facility] Estimated Blood Loss Estimated blood loss (mL): scant Specimens/Packing Specimens Removed antrum, cecum, descending colon ALEX SEPULVEDA DO Apr 02, 2018 10:38
[2018-04-02] MEDS ORDERED: PANT40TA2 PO (10:39)
[2018-04-02 10:40] VITALS: BP 130/70
--- NOTE | 2018-04-02 10:40 | Discharge Inst-Simple/Standard ---
Discharge Inst-Standard Discharge Medications New, Converted or Re-Newed RX: RX on Chart Patient Instructions/Follow Up Plan of Care/Instructions/FU: 2 weeks [place] Activity as Tolerated: Yes Discharge Diet: Regular Diet ALEX SEPULVEDA DO Apr 02, 2018 10:40
--- NOTE | 2018-04-02 10:49 | Anesthesia-General Post-Op ---
MAC Patient Condition Mental Status/LOC: Same as Preop Cardiovascular: Satisfactory Nausea/Vomiting: Absent Respiratory: Satisfactory Pain: Controlled Complications: Absent Post Op Complications Complications None Follow Up Care/Instructions Patient Instructions None needed. Anesthesiology Discharge Order Discharge Order Patient is doing well, no complaints, stable vital signs, no apparent adverse anesthesia problems. No complications reported per nursing. WARREN FOREMAN CRNA Apr 02, 2018 10:49
[2018-04-02 10:50] VITALS: BP 130/70
--- NOTE | 2018-04-02 18:13 | OPERATIVE REPORT ---
DATE OF SERVICE: 04/02/2018 PREOPERATIVE DIAGNOSES: Epigastric abdominal pain, dysphagia, bright blood per rectum. POSTOPERATIVE DIAGNOSES: Small hiatal hernia, gastritis, flat cecal polyp and descending colon polyp, internal hemorrhoids. PROCEDURES: EGD with biopsy of antrum and colonoscopy with cold biopsy cecum and hot biopsy polypectomy descending colon. SURGEON: Alex Lowe DO ANESTHESIA: Per MDA. ESTIMATED BLOOD LOSS: Scant. COMPLICATIONS: None. INDICATIONS: The patient is a 57-year-old female needing EGD and colonoscopy. She understands risks and benefits of procedure and wished to proceed with procedure. Consent was signed in the chart. PROCEDURE: The patient was taken to the endoscopy suite, placed in left lateral recumbent position. Timeout was performed. Scope was inserted in the mouth, down the esophagus, stomach and into the duodenum without difficulty. There were no polyps, masses or ulcerations in the duodenum. Scope was slowly retracted back to the stomach, which was further insufflated. Some erythematous change consistent with some slight gastritis was present. Biopsy of the antrum was obtained. Scope was retroflexed just noting a small hiatal hernia. No other pathology. Scope was returned to its normal position, slowly withdrawn to the distal esophagus, which had normal appearance. Scope was then slowly retracted back to completely removed, noting no other pathology. Digital rectal exam was performed just noting some internal hemorrhoids. No palpable polyps, masses or ulcerations. Scope was inserted in the rectum and advanced all the way to cecum with minimal difficulty. Prep was adequate with irrigation and suction. Within the cecum, a large flat polyp was present, which was not amenable to endoscopic resection. Cold biopsies of this area were obtained. Scope was then slowly retracted back. There were no polyps, masses or ulcerations within the ascending and transverse colon. Within the descending colon, a small polyp was present, which hot biopsy polypectomy was performed. Scope was continuously retracted back with no polyps, masses or ulcerations in the sigmoid colon and in the rectum. Scope was also retroflexed noting just some internal hemorrhoids. No other pathology. Scope was returned to its normal position, slowly withdrawn until completely removed. The patient tolerated the procedure well without any complications. She was taken to recovery room in stable condition. RECOMMENDATIONS: The patient will be started on Protonix 40 mg to see if any improvement of her dysphagia and epigastric abdominal pain symptoms. The patient likely bright red bleeding is from the hemorrhoids. The cecal polyp that is large and flat. Biopsies were obtained. We are going to await biopsy results. May need surgical intervention for this area. We will discuss versus repeating endoscopy. Job ID: [id number] DocumentID: [id number] Dictated Date: 04/02/2018 10:46:29 Product Marketing Consultant Date: 04/02/2018 18:12:14 Dictated By: ALEX LOWE DO
== END 2018-04-02 10:50 | disposition home or self-care (01) ==
LOC: ENDO 09:06
PROVIDERS: ATTEND Surgery
DX: D12.0 Benign neoplasm of cecum (principal); D12.4 Benign neoplasm of descending colon; K29.70 Gastritis, unspecified, without bleeding; K44.9 Diaphragmatic hernia without obstruction or gangrene; R13.10 Dysphagia, unspecified; K64.8 Other hemorrhoids; F17.200 Nicotine dependence, unspecified, uncomplicated
CPT/HCPCS: 88305; 88342

== ENCOUNTER 2018-04-30 10:48 | Outpatient (CLI) | payer BC ==
[~2018-04-30] VITALS: Ht 162.6 cm; Wt 61.5 kg
[~2018-04-30 10:48] MED LIST changes: +PANT40TA2 PO
[2018-04-30 11:07] VITALS: BP 143/81
[2018-04-30 11:36] LABS: BASOPHILS % (AUTO) 0 % (0-10); EOSINOPHILS # (AUTO) 0.2 10^3/uL (0.0-0.3); EOSINOPHILS % (AUTO) 7 % (0-10); HEMATOCRIT 38 % (35-52); HEMOGLOBIN 13.1 G/DL (11.5-16.0); LYMPHOCYTES # (AUTO) 0.8 X 10^3 (1.0-4.0); LYMPHOCYTES % (AUTO) 24 % (12-44); MEAN CORPUSCULAR HEMOGLOBIN 30 PG (25-34); MEAN CORPUSCULAR HGB CONC 35 G/DL (32-36); MEAN CORPUSCULAR VOLUME 87 FL (80-99); MEAN PLATELET VOLUME 9.2 FL (7.4-10.4); MONOCYTES # (AUTO) 0.2 X 10^3 (0.0-1.0); MONOCYTES % (AUTO) 6 % (0-12); NEUTROPHILS # (AUTO) 2.1 X 10^3 (1.8-7.8); NEUTROPHILS % (AUTO) 63 % (42-75); PLATELET COUNT 227 10^3/uL (130-400); RED CELL DISTRIBUTION WIDTH 12.1 % (10.0-14.5); WHITE BLOOD COUNT 3.3 10^3/uL (4.3-11.0)
[2018-04-30] MEDS ORDERED: PANT40TA2 PO (12:39)
== END 2018-04-30 11:57 | disposition home or self-care (01) ==
LOC: PREOP 10:48
PROVIDERS: ATTEND Surgery
DX: Z01.812 Encounter for preprocedural laboratory examination (principal); D12.6 Benign neoplasm of colon, unspecified
CPT/HCPCS: 36415; 85025; 86850; 86900; 86901; 87081

== ENCOUNTER 2018-05-02 08:06 | Inpatient (IN) | payer BC ==
[~2018-05-02] VITALS: Ht 162.6 cm; Wt 61.5 kg
[2018-05-02] MEDS ORDERED: ceFAZolin INJECTION 1,000 MG in WATER (STERILE) FOR INJECTION 10 ML IV ONE (08:15)
[2018-05-02] MEDS ORDERED: metroNIDAZOLE 500MG/100ML IVPB 100 ML IV ONE (08:15)
[2018-05-02 08:25] VITALS: BP 128/74
[2018-05-02] MEDS: LACTATED RINGERS 1,000 ML IV PRN ×2 (08:50→10:29)
[2018-05-02] MEDS ORDERED: MIDAZOLAM 2 MG/2 ML (VERSED) VIAL IV ONE (09:00)
[2018-05-02] MEDS ORDERED: FAMOTIDINE 20MG/2ML IV (PEPCID) IV ONE (09:00)
[2018-05-02] MEDS ORDERED: BUP/EPI 0.5% 1:200,000 (SENSORCAINE) 30 ML VIAL ONE (09:36)
[2018-05-02] MEDS ORDERED: LIDOCAINE 1% INJ 20 ML 20 ML VIAL ONE (09:36)
--- NOTE | 2018-05-02 09:51 | Progress Note-Pre Operative ---
Pre-Operative Progress Note H&P Reviewed The H&P was reviewed, patient examined and no changes noted. Date Seen by Provider: May 02, 2018 Time Seen by Provider: 09:50 Date H&P Reviewed: May 02, 2018 Time H&P Reviewed: 09:50 Pre-Operative Diagnosis: tubular adenoma cecum ALEX SEPULVEDA DO May 02, 2018 09:51
[2018-05-02] MEDS ORDERED: ceFAZolin INJECTION 1,000 MG ONE (09:57)
[2018-05-02] MEDS ORDERED: fentaNYL INJECTION 250 MCG/5 ML AMP ONE (10:23)
[2018-05-02] MEDS ORDERED: MIDAZOLAM 2 MG/2 ML (VERSED) VIAL ONE (10:23)
[2018-05-02] MEDS ORDERED: PHENYLEPHRINE 100 MCG/ML 10 ML (ANESTHESIA) SYR ONE (10:47)
[2018-05-02] MEDS ORDERED: LIDOCAINE PF 2% 5 ML (XYLOCAINE) VIAL ONE (10:47)
[2018-05-02] MEDS ORDERED: GLYCOPYRROLATE 0.2 MG/ML (ROBINUL) 2 ML VIAL ONE (10:47)
[2018-05-02] MEDS ORDERED: SEVOFLURANE (ULTANE) 15 ML INHAL SOLN ONE (10:47)
[2018-05-02] MEDS ORDERED: proPOfol 200 MG/20 ML (DIPRIVAN) VIAL IV ONE (10:47)
[2018-05-02] MEDS ORDERED: ONDANSETRON 4 MG/2 ML (SDV) Z0FRAN ONE (10:47)
[2018-05-02] MEDS ORDERED: DEXAMETHASONE 10 MG/ML (DECADRON) 1 ML VIAL ONE (10:47)
[2018-05-02] MEDS ORDERED: NEOSTIGMINE 1 MG/ML 5 ML SYRINGE ONE (10:47)
[2018-05-02] MEDS ORDERED: ROCURONIUM 10 MG/ML 5 ML SYRINGE IV ONE (10:47)
[2018-05-02] MEDS ORDERED: BUPIVACAINE 0.5% 30 ML (SENSORCAINE) VIAL ONE (11:02)
[2018-05-02] MEDS ORDERED: ONDANSETRON 4 MG/2 ML (SDV) Z0FRAN IVP PRN ×2 (12:15→13:00)
[2018-05-02] MEDS ORDERED: morphine INJ 10 MG/ML 1ML (SYR OR VIAL) IVP ONE (12:15)
[2018-05-02] MEDS ORDERED: HYDROmorphone 2 MG/ML VIAL (DILAUDID) IV ONE (12:15)
--- NOTE | 2018-05-02 12:57 | Progress Note-Post Operative ---
Post-Operative Progess Note Surgeon (s)/Powerhouse Tender (s) Surgeon ALEX SEPULVEDA DO Powerhouse Tender: Dr. Guardado Pre-Operative Diagnosis tubular adenoma cecum Post-Operative Diagnosis same Procedure & Operative Findings Date of Procedure 05/02/18 Procedure Performed/Findings open right colectomy Anesthesia Type general Estimated Blood Loss Estimated blood loss (mL): min Specimens/Packing Specimens Removed right colon ALEX SEPULVEDA DO May 02, 2018 12:57
[2018-05-02] MEDS ORDERED: morphine INJ 10 MG/ML 1ML (SYR OR VIAL) IVP PRN (13:00)
--- NOTE | 2018-05-02 13:00 | NUR ---
JOSE LINARES Olesya admitted to room 426-1, from surgery after under going right colon resection, on 05/02/18 via bed, accompanied by staff and family.JOSE LINARES introduced to surroundings, call light, bed controls, phone, TV, temperature control, lights, meal times, smoking policy, visitor policy, side rail policy, bathrooms and showers. Patient Rights given to patient in the handbook. JOSE LINARES verbalizes understanding that [facility] is not responsible for the loss or damage to any personal effects or valuables that are kept in the patients posession during their hospitalization. The following Patient Care Plans and discharge were discussed with the patient. JSOE LINARES verbalizes understanding of Interdisciplinary Patient Education.
[2018-05-02] MEDS: LACTATED RINGERS 1,000 ML IV SCH ×2 (13:30→21:55)
[2018-05-02] MEDS ORDERED: FLU QUADRIvalent (5+ YOA) 2018-2019 (AFLURIA) 0.5 ML IM ONE (14:45)
[2018-05-02] MEDS ORDERED: HYDROcodone/APAP 5 MG/325 MG (LORTAB) TAB ONE (15:36)
--- NOTE | 2018-05-02 15:39 | Physical Therapy Progress Note ---
Therapy Progress Note Pt reports she does not think she needs PT this date. Reports she has already been up and walked to the bathroom without assist. Nursing confirmed. Will check with patient in the morning and if she is still moving well, will not initiate PT evaluation. DONNA FERRIS PT May 02, 2018 15:39
[2018-05-02] MEDS: HYDROcodone/APAP 5 MG/325 MG (LORTAB) TAB PO PRN (15:42)
[2018-05-02 15:59] VITALS: BP 125/62
[2018-05-02] MEDS: ceFAZolin INJECTION 1,000 MG in WATER (STERILE) FOR INJECTION 10 ML IV SCH (17:17)
[2018-05-02] MEDS: metroNIDAZOLE 500MG/100ML IVPB 100 ML IV SCH (17:18)
[2018-05-02 19:32] VITALS: BP 139/71
--- NOTE | 2018-05-02 23:21 | OPERATIVE REPORT ---
DATE OF SERVICE: 05/02/2018 PREOPERATIVE DIAGNOSIS: Tubular adenoma of the cecum. POSTOPERATIVE DIAGNOSIS: Tubular adenoma of the cecum. PROCEDURE: Open right colectomy. SURGEON: Alex Lowe DO FINISHER SPECIAL STOCKS: Dr. Guardado, assisted in retraction, dissection and closure. ANESTHESIA: General. ESTIMATED BLOOD LOSS: Minimal. COMPLICATIONS: None. INDICATIONS: The patient is a 58-year-old female who underwent colonoscopy. She was found to have a large flat tubular adenoma of the cecum that was unresectable endoscopically. The patient was discussed risks and benefits and alternatives and she wished to proceed with right colectomy. She understands risks and benefits and wished to proceed with procedure. Consent was signed in the chart. DESCRIPTION OF PROCEDURE: The patient was taken to the operating suite. She was prepped and draped in sterile fashion. Surgical pause was performed. A midline incision was made for the hand port, but the cecum was very floppy and was able to be brought up through the incision; therefore, we continued the dissection mobilizing the right colon along the white line of Toldt and also mobilizing the retroperitoneal attachments, mobilizing the small bowel and cecum up to the incision. The terminal ileum was then dissected around and a JAMES 55 blue stapler was fired across the terminal ileum. The colon was dissected around distal to the cecum and JAMES linear blue staple was then fired across the colon. LigaSure was used to remove the mesentery. The ileum and colon were then brought together in a ddnj-[id number]-qztt fashion and a JAMES 55 stapler was then fired making a dhou-mf-[id number] anastomosis. A crotch stitch was placed with 3-0 Vicryl and a TA stapler was then used to finish the anastomosis. The anastomosis was widely patent. Hemostasis was achieved. The mesentery defect was then closed using 3-0 Vicryl in a running fashion. The abdomen was then washed and dried. Hemostasis was achieved. The fascia was then closed using 1-0 looped PDS and the wound was then irrigated with copious amounts of irrigation and the skin was stapled shut. The patient tolerated the procedure well without any complications. She was taken to recovery room in stable condition. Job ID: [id number] DocumentID: [id number] Dictated Date: 05/02/2018 15:06:37 Clarity Developer Date: 05/02/2018 23:21:06 Dictated By: ALEX LOWE DO
[2018-05-03] VITALS (7 sets, daily range): BP systolic 104–148; BP diastolic 55–68
[2018-05-03] MEDS: HYDROcodone/APAP 5 MG/325 MG (LORTAB) TAB PO PRN ×4 (00:13→20:24)
[2018-05-03] MEDS: ceFAZolin INJECTION 1,000 MG in WATER (STERILE) FOR INJECTION 10 ML IV SCH (01:24)
[2018-05-03] MEDS: metroNIDAZOLE 500MG/100ML IVPB 100 ML IV SCH (01:25)
[2018-05-03] MEDS: LACTATED RINGERS 1,000 ML IV SCH (08:04)
--- NOTE | 2018-05-03 08:33 | Physical Therapy Progress Note ---
Therapy Progress Note Patient is up independently in room and hallway with out difficulty. No skilled therapy intervention indicated. Thank you for this referral. EARL HERNANDEZ PT May 03, 2018 08:33
--- NOTE | 2018-05-03 09:34 | Anesthesia-General Post-Op ---
General Patient Condition Mental Status/LOC: Same as Preop Cardiovascular: Satisfactory Nausea/Vomiting: Absent Respiratory: Satisfactory Pain: Controlled Complications: Absent Post Op Complications Complications None Follow Up Care/Instructions Patient Instructions None needed. Anesthesia/Patient Condition Patient Condition Patient is doing well, no complaints, stable vital signs, no apparent adverse anesthesia problems. No complications reported per nursing. WARREN FOREMAN CRNA May 03, 2018 09:34
--- NOTE | 2018-05-03 10:00 | Progress Note ---
Subjective Date Seen by a Provider: May 03, 2018 Time Seen by a Provider: 09:58 Subjective/Events-last exam patient feeling well. Pain controlled. tolerating liquids. no flatus or bm. ambulating an using IS. Denies n/v fever sweats chills shortness of breath or chest pain. Objective Exam Vital Signs Date Time Temp Pulse Resp B/P (MAP) Pulse Ox O2 Delivery O2 Flow Rate FiO2 05/03/18 08:00 98.2 72 20 128/59 (82) 100 Room Air 05/03/18 04:40 97.4 74 18 104/58 (73) 97 Room Air 05/03/18 00:00 98.0 72 16 119/58 (78) 98 Room Air 05/02/18 21:00 Room Air 05/02/18 19:32 98.0 84 20 139/71 (93) 98 Room Air 05/02/18 15:59 98.0 76 20 125/62 (83) 99 Room Air I & O 05/03/18 07:00 Intake Total 4360 ml Output Total 1100 ml Balance 3260 ml Capillary Refill : Less Than 3 Seconds General Appearance: No Apparent Distress HEENT: PERRL/EOMI, Normal ENT Inspection Neck: Non Tender, Supple Respiratory: Chest Non Tender, No Accessory Muscle Use, No Respiratory Distress Cardiovascular: Regular Rate, Rhythm Gastrointestinal: normal bowel sounds, soft, tenderness (incisional) Extremity: Normal Inspection, Normal Range of Motion, Non Tender Neurologic/Psychiatric: Alert, Oriented x3, No Motor/Sensory Deficits, Normal 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 Friedman Consulted for medical management Clinical Quality Measures DVT/VTE Risk/Contraindication: Risk Factor Score Per Nursin RFS Level Per Nursing on Admit: 2=Moderate ALEX SEPULVEDA DO May 03, 2018 10:00
[2018-05-03] MEDS ORDERED: PANTOPRAZOLE 40 MG (PROTONIX) TAB PO ONE (10:49)
[2018-05-03] MEDS: PANTOPRAZOLE 40 MG (PROTONIX) TAB PO SCH (10:55)
--- NOTE | 2018-05-03 13:48 | Consultation ---
History of Present Illness History of Present Illness Patient Consulted On(real/time) 05/03/18 13:45 Time Seen by Provider: 13:45 History of Present Illness Patient had surgery yesterday for a tubular adenoma. Patient feeling okay today. Patient abdomen is soft. Previous surgeries complete hysterectomy and carpal tunnel bilateral. Allergies and Home Medications Allergies Coded Allergies: No Known Drug Allergies (Unverified , 04/30/18) Home Medications Pantoprazole Sodium 40 Mg Tablet.dr, 40 MG PO DAILY, (Reported) Patient Home Medication List Home Medication List Reviewed: Yes Past Hmxqrim-Gyeaqp-Etmgzc Hx Patient Social History Alcohol Use: Denies Use Recreational Drug Use: No Type Used: Cigarettes 2nd Hand Smoke Exposure: Yes Recent Foreign Travel: No Contact w/Someone Who Travel: No Recent Infectious Disease Expo: No Recent Hopitalizations: No Immunizations Up To Date Tetanus Booster (TDap): Unknown Date of Pneumonia Vaccine: Dec 24, 2014 Seasonal Allergies Seasonal Allergies: Yes (MILD) Past Medical History Surgeries: Yes (CTR RIGHT) Hysterectomy Respiratory: No Currently Using CPAP: No Currently Using BIPAP: No Cardiac: No Neurological: Yes Headaches /Migraines Reproductive Disorders: No 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 Sexually Transmitted Disease: No HIV/AIDS: No Genitourinary: No Gastrointestinal: Yes (SOME ABD PAIN) Gastroesophageal Reflux, Polyps, Hiatal Hernia Musculoskeletal: No Endocrine: No HEENT: Yes (GLASSES, DENTURES) Cataract Loss of Vision: Bilateral Hearing Impairment: Denies Cancer: No Psychosocial: No Integumentary: No Blood Disorders: No Adverse Reaction/Blood Tranf: No (N/A) Family Medical History Alcoholism Alzheimer's disease Arthritis Cardiovascular disease Cataracts Completed stroke Coronary thrombosis Deafness or hearing loss Dementia Dysphasia Hypercholesterolemia Hypertension Myocardial infarction Parkinson's disease Psychosocial problem Respiratory disorder Severe allergy Thyroid disease Visual disorder Heart Disease Review of Systems-General Constitutional: no symptoms reported EENTM: no symptoms reported Respiratory: no symptoms reported Cardiovascular: no symptoms reported Genitourinary: no symptoms reported Physical Exam-General Problems Physical Exam Vital Signs Vital Signs - First Documented Capillary Refill : Less Than 3 Seconds General Appearance: WD/WN, no apparent distress Eyes: Bilateral Eye Normal Inspection HEENT: normal ENT inspection Neck: non-tender, full range of motion Respiratory: lungs clear, no respiratory distress, no accessory muscle use Cardiovascular: regular rate, rhythm, no murmur Gastrointestinal: soft, other (Not passing any gas) Assessment/Plan Assessment/Plan Admission Diagnosis/Plan Tubular adenoma Admission Status: Inpatient Order (span 2 midnights) Reason for Inpatient Admission: Surgery for tubular adenoma Clinical Quality Measures DVT/VTE Risk/Contraindication: Risk Factor Score Per Nursin RFS Level Per Nursing on Admit: 2=Moderate GILSON RIDDLE DO May 03, 2018 13:48
[2018-05-03 13:51] LABS: BASOPHILS % (AUTO) 0 % (0-10); EOSINOPHILS % (AUTO) 0 % (0-10); HEMATOCRIT 32 % (35-52); LYMPHOCYTES # (AUTO) 0.6 X 10^3 (1.0-4.0); LYMPHOCYTES % (AUTO) 8 % (12-44); MEAN CORPUSCULAR HEMOGLOBIN 30 PG (25-34); MEAN CORPUSCULAR HGB CONC 34 G/DL (32-36); MEAN CORPUSCULAR VOLUME 89 FL (80-99); MEAN PLATELET VOLUME 9.2 FL (7.4-10.4); MONOCYTES # (AUTO) 0.5 X 10^3 (0.0-1.0); MONOCYTES % (AUTO) 7 % (0-12); NEUTROPHILS # (AUTO) 6.2 X 10^3 (1.8-7.8); NEUTROPHILS % (AUTO) 85 % (42-75); PLATELET COUNT 144 10^3/uL (130-400); WHITE BLOOD COUNT 7.3 10^3/uL (4.3-11.0)
[2018-05-03 14:08] LABS: BUN/CREATININE RATIO 12; CALCIUM 9.1 MG/DL (8.5-10.1); CARBON DIOXIDE 24 MMOL/L (21-32); CHLORIDE 108 MMOL/L (98-107); GFR ESTIMATED > 60; GLUCOSE 107 MG/DL (70-105); POTASSIUM 3.6 MMOL/L (3.6-5.0); SODIUM 142 MMOL/L (135-145)
[2018-05-04] MEDS: HYDROcodone/APAP 5 MG/325 MG (LORTAB) TAB PO PRN ×3 (02:45→19:40)
[2018-05-04 04:28] VITALS: BP 108/56
[2018-05-04] MEDS: PANTOPRAZOLE 40 MG (PROTONIX) TAB PO SCH (06:18)
[2018-05-04 06:20] LABS: HEMOGLOBIN 10.3 G/DL (11.5-16.0); MEAN PLATELET VOLUME 9.3 FL (7.4-10.4); RED CELL DISTRIBUTION WIDTH 12.3 % (10.0-14.5); WHITE BLOOD COUNT 3.4 10^3/uL (4.3-11.0)
[2018-05-04 06:39] LABS: BUN/CREATININE RATIO 11; CALCIUM 8.5 MG/DL (8.5-10.1); CARBON DIOXIDE 25 MMOL/L (21-32); CHLORIDE 109 MMOL/L (98-107); CREATININE SERUM 0.84 MG/DL (0.60-1.30); GFR ESTIMATED > 60; GLUCOSE 98 MG/DL (70-105); MAGNESIUM 2.1 MG/DL (1.8-2.4); POTASSIUM 3.3 MMOL/L (3.6-5.0); SODIUM 142 MMOL/L (135-145)
[2018-05-04 08:00] VITALS: BP 154/78
[2018-05-04] MEDS ORDERED: NS IV 500 ML 500 ML ONE (09:27)
[2018-05-04] MEDS ORDERED: NS IV 500 ML 500 ML IV ONE (09:45)
[2018-05-04] MEDS: POTASSIUM CL 10MEQ/50ML IVPB 50 ML IV SCH ×3 (09:46→12:06)
--- NOTE | 2018-05-04 11:36 | NUR ---
DR. SEPULVEDA HERE REQUESTING THAT PT WEAR SCD'S. PT ADAMANTLY REFUSED. EDUCATION REGARDING DVT'S DONE. PT CONTINUES TO REFUSE SCD'S.
[2018-05-04 12:00] VITALS: BP 125/78
--- NOTE | 2018-05-04 12:29 | Progress Note-Hospitalist ---
Subjective HPI/CC On Admission Date Seen by Provider: May 04, 2018 Time Seen by Provider: 11:45 Subjective/Events-last exam Patient doing well his past but she feels the rumbling Ambulating well Maintain on IV fluid Pain is controlled somewhat 10 family members in the room and when walking 7 go with her Review of Systems Gastrointestinal: Abdominal Pain Objective Exam Vital Signs Vital Signs Date Time Temp Pulse Resp B/P (MAP) Pulse Ox O2 Delivery O2 Flow Rate FiO2 05/04/18 08:00 97.4 86 18 154/78 (103) 100 Room Air Capillary Refill : Less Than 3 Seconds General Appearance: No Apparent Distress, WD/WN HEENT: PERRL/EOMI, Normal ENT Inspection Neck: Non Tender, Supple Respiratory: Chest Non Tender, Lungs Clear, Normal Breath Sounds, No Accessory Muscle Use, No Respiratory Distress Cardiovascular: Regular Rate, Rhythm, No Edema, No Gallop, No JVD, No Murmur, Normal Peripheral Pulses Gastrointestinal: Tenderness Extremity: Normal Inspection, Normal Range of Motion, Non Tender Neurologic/Psychiatric: Alert, Oriented x3, No Motor/Sensory Deficits, Normal Mood/Affect, hypnotherapist II-XII Norm as Tested Skin: Normal Color, Warm/Dry Lymphatic: No Adenopathy Results/Procedures Lab Laboratory Tests 05/04/18 05:52 Patient resulted labs reviewed. Assessment/Plan Assessment and Plan Assess & Plan/Chief Complaint Assessment: Status post right colectomy due to tubular adenoma Postop ileus Abdominal pain History of GERD maintain on PPI Plan: Ambulate Supportive long term med Check labs in a.m. Diagnosis/Problems Diagnosis/Problems (1) Ileus following gastrointestinal surgery Status: Acute (2) GERD (gastroesophageal reflux disease) Status: Chronic Qualifiers: Esophagitis presence: without esophagitis Qualified Codes: K21.9 - Gastro- esophageal reflux disease without esophagitis (3) Abdominal pain Status: Acute Qualifiers: Abdominal location: generalized Qualified Codes: R10.84 - Generalized abdominal pain (4) Tubular adenoma Status: Acute (5) Blood in stool Status: Resolved Resolution Date/Time: 05/04/18 @ 14:28 Clinical Quality Measures DVT/VTE Risk/Contraindication: Risk Factor Score Per Nursin RFS Level Per Nursing on Admit: 2=Moderate FAHAD DHILLON DO May 04, 2018 12:29
--- NOTE | 2018-05-04 13:05 | NUR ---
LORTAB 5MG PO FOR PAIN. FAMILY AT BEDSIDE. FAMILY STATES THEY SILENCED IV. HOWEVER, MAIN IV RUNNING CONCURRENTLY WITH POTASSIUM WAS SHUT OFF AND PT CRYING ONLY POTASSIUM INFUSING. FAMILY EDUCATED TO CALL WHEN IV BEEPS AND TO NOT TRY TO FIX IT THEMSELVES.
--- NOTE | 2018-05-04 13:23 | Progress Note ---
Subjective Date Seen by a Provider: May 04, 2018 Time Seen by a Provider: 13:19 Subjective/Events-last exam patient states that she's doing okay with pain control. Patient ambulating. Patient not passing any flatus or bowel movement. A little bit more sore today than yesterday. No nausea vomiting fever sweats chills shortness of breath or chest pain. Objective Exam Vital Signs Date Time Temp Pulse Resp B/P (MAP) Pulse Ox O2 Delivery O2 Flow Rate FiO2 05/04/18 08:00 97.4 86 18 154/78 (103) 100 Room Air 05/04/18 08:00 Room Air 05/04/18 04:28 98.0 78 16 108/56 (73) 96 Room Air 05/03/18 23:11 97.6 78 18 119/59 (79) 99 Room Air 05/03/18 20:20 Room Air 05/03/18 19:59 98.3 77 16 148/68 (94) 99 Room Air 05/03/18 15:32 98.6 73 18 129/60 (83) 100 Room Air I & O 05/04/18 07:00 Intake Total 4670 ml Output Total 3200 ml Balance 1470 ml Capillary Refill : Less Than 3 Seconds General Appearance: No Apparent Distress HEENT: PERRL/EOMI, Normal ENT Inspection Neck: Non Tender, Supple Respiratory: Chest Non Tender, No Accessory Muscle Use, No Respiratory Distress Cardiovascular: Regular Rate, Rhythm Gastrointestinal: soft, tenderness (incisional no signs of infection), other Extremity: Normal Inspection, Normal Range of Motion, Non Tender Neurologic/Psychiatric: Alert, Oriented x3, No Motor/Sensory Deficits, Normal Mood/Affect, us administrative law judge II-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 Norm as Tested Skin: Normal Color, Warm/Dry Lymphatic: No Adenopathy Results Lab Laboratory Tests 05/03/18 13:45: White Blood Count 7.3, Red Blood Count 3.63L, Hemoglobin 11.0L, Hematocrit 32L, Mean Corpuscular Volume 89, Mean Corpuscular Hemoglobin 30, Mean Corpuscular Hemoglobin Concent 34, Red Cell Distribution Width 12.0, Platelet Count 144, Mean Platelet Volume 9.2, Neutrophils (%) (Auto) 85H, Lymphocytes (%) (Auto) 8L , Monocytes (%) (Auto) 7, Eosinophils (%) (Auto) 0, Basophils (%) (Auto) 0, Neutrophils # (Auto) 6.2, Lymphocytes # (Auto) 0.6L, Monocytes # (Auto) 0.5, Eosinophils # (Auto) 0.0, Basophils # (Auto) 0.0, Sodium Level 142, Potassium Level 3.6, Chloride Level 108H, Carbon Dioxide Level 24, Anion Gap 10, Blood Urea Nitrogen 11, Creatinine 0.90, Estimat Glomerular Filtration Rate > 60, BUN/ Creatinine Ratio 12, Glucose Level 107H, Calcium Level 9.1 05/04/18 05:52: White Blood Count 3.4L, Red Blood Count 3.39L, Hemoglobin 10.3L, Hematocrit 30L , Mean Corpuscular Volume 89, Mean Corpuscular Hemoglobin 30, Mean Corpuscular Hemoglobin Concent 34, Red Cell Distribution Width 12.3, Platelet Count 131, Mean Platelet Volume 9.3, Sodium Level 142, Potassium Level 3.3L, Chloride Level 109H, Carbon Dioxide Level 25, Anion Gap 8, Blood Urea Nitrogen 9, Creatinine 0.84, Estimat Glomerular Filtration Rate > 60, BUN/Creatinine Ratio 11, Glucose Level 98, Calcium Level 8.5, Magnesium Level 2.1 Assessment/Plan Assessment/Plan Assessment/Plan Tubular adenoma Of cecum. Status post open right colectomy hypokalemia-replace potassium today .Await bowel function Patient discussed SCDs for DVT prophylaxis. Patient's ambulating greater than 3 times per day on clear liquids await bowel function then advance Clinical Quality Measures DVT/VTE Risk/Contraindication: Risk Factor Score Per Nursin RFS Level Per Nursing on Admit: 2=Moderate ALEX SEPULVEDA DO May 04, 2018 13:23
[2018-05-04 15:42] VITALS: BP 125/72
[2018-05-04 19:22] VITALS: BP 134/62
[2018-05-04 23:05] VITALS: BP 116/61
[2018-05-05 06:21] LABS: BASOPHILS % (AUTO) 0 % (0-10); EOSINOPHILS # (AUTO) 0.1 10^3/uL (0.0-0.3); EOSINOPHILS % (AUTO) 4 % (0-10); HEMATOCRIT 34 % (35-52); HEMOGLOBIN 11.5 G/DL (11.5-16.0); LYMPHOCYTES # (AUTO) 0.6 X 10^3 (1.0-4.0); LYMPHOCYTES % (AUTO) 18 % (12-44); MEAN CORPUSCULAR HEMOGLOBIN 30 PG (25-34); MEAN CORPUSCULAR HGB CONC 34 G/DL (32-36); MEAN CORPUSCULAR VOLUME 88 FL (80-99); MEAN PLATELET VOLUME 9.4 FL (7.4-10.4); MONOCYTES # (AUTO) 0.3 X 10^3 (0.0-1.0); MONOCYTES % (AUTO) 8 % (0-12); NEUTROPHILS # (AUTO) 2.4 X 10^3 (1.8-7.8); NEUTROPHILS % (AUTO) 70 % (42-75); PLATELET COUNT 135 10^3/uL (130-400); RED CELL DISTRIBUTION WIDTH 11.7 % (10.0-14.5); WHITE BLOOD COUNT 3.4 10^3/uL (4.3-11.0)
[2018-05-05 06:34] LABS: ALANINE AMINOTRANSFERASE 15 U/L (0-55); ALBUMIN 3.8 GM/DL (3.2-4.5); ALKALINE PHOSPHATASE 64 U/L (40-136); BILIRUBIN,TOTAL 0.5 MG/DL (0.1-1.0); BUN/CREATININE RATIO 9; CALCIUM 9.3 MG/DL (8.5-10.1); CARBON DIOXIDE 25 MMOL/L (21-32); CHLORIDE 105 MMOL/L (98-107); GFR ESTIMATED > 60; GLUCOSE 94 MG/DL (70-105); POTASSIUM 3.5 MMOL/L (3.6-5.0); SODIUM 140 MMOL/L (135-145); TOTAL PROTEIN 6.7 GM/DL (6.4-8.2)
[2018-05-05] MEDS: PANTOPRAZOLE 40 MG (PROTONIX) TAB PO SCH (06:37)
[2018-05-05 08:00] VITALS: BP 139/81
[2018-05-05] MEDS ORDERED: POTASSIUM CL 10MEQ/50ML IVPB 50 ML IV ONE (10:15)
[2018-05-05] MEDS ORDERED: NS IV 500 ML 500 ML ONE (10:45)
[2018-05-05] MEDS ORDERED: ACHD5005 PO (11:22)
[2018-05-05] MEDS ORDERED: DOCU-143 PO (11:22)
--- NOTE | 2018-05-05 11:37 | Discharge Inst-Simple/Standard ---
Discharge Inst-Standard Discharge Medications New, Converted or Re-Newed RX: RX on Chart Patient Instructions/Follow Up Plan of Care/Instructions/FU: 2 weeks [place] Activity as Tolerated: No Discharge Diet: Soft Diet Other Inst to Patient Follow up Appt: Make appointment for 2 week. Instructions: No lifting greater than 10 pounds. No strenuous activity. May shower in 24 hours, no tub bath or soaking. Use incentive spirometer at home as directed. No Smoking Skin/Wound Care: May remove bandages. Keep clean and dry. Symptoms to Report: Appetite Changes, Extremity Discoloration, Numbness/Tingling, Swelling Increased , Bleeding Excessive, Eyesight Changes, Pain Increased, Urine Color Change, Constipation(Persistent), Fever over 101 degree F, Pain/Pressure in chest, Urinating Difficulty, Cough Up/Vomit Blood, Heart Beat Irreg/Pounding, Pain/ Pressure in jaw, Vaginal Bleeding Increase, Cramps in feet or legs, Lightheadedness, Pain/Pressure in shoulder, Diarrhea(Persistent), Memory Changes Suddenly, Questions/Concerns, Weight gain consecutive days, Dizziness/ Fainting, Nausea/Vomiting, Shortness of Breath, Weight gain over 2 pounds If questions or concerns contact your physician Or seek help at emergency department. ALEX SEPULVEDA DO May 05, 2018 11:37
--- NOTE | 2018-05-05 11:40 | Progress Note ---
Subjective Date Seen by a Provider: May 05, 2018 Time Seen by a Provider: 11:38 Subjective/Events-last exam Doing well. tolerating diet. passing flatus. denies n/v fever sweats chills shortness of breath or chest pain. patient wanting to go home. Objective Exam Vital Signs Date Time Temp Pulse Resp B/P (MAP) Pulse Ox O2 Delivery O2 Flow Rate FiO2 05/05/18 08:00 99.0 82 18 139/81 (100) 98 Room Air 05/05/18 08:00 Room Air 05/04/18 23:05 98.6 76 18 116/61 (79) 96 Room Air 05/04/18 19:40 Room Air 05/04/18 19:22 98.9 80 20 134/62 (86) 99 Room Air 05/04/18 15:42 99.4 81 20 125/72 (89) 96 Room Air 05/04/18 12:00 97.4 92 16 125/78 (94) 100 Room Air I & O 05/05/18 07:00 Intake Total 1660 ml Output Total 1875 ml Balance -215 ml Capillary Refill : Less Than 3 Seconds General Appearance: No Apparent Distress, WD/WN HEENT: PERRL/EOMI, Normal ENT Inspection Neck: Non Tender, Supple Respiratory: Chest Non Tender, No Accessory Muscle Use, No Respiratory Distress Cardiovascular: Regular Rate, Rhythm, Normal Peripheral Pulses Gastrointestinal: soft, tenderness (incisional no signs of infection) Extremity: Normal Inspection, Normal Range of Motion, Non Tender Neurologic/Psychiatric: Alert, Oriented x3, No Motor/Sensory Deficits, Normal Mood/Affect, manager instrumentation II-XII Norm as Tested Skin: Normal Color, Warm/Dry Lymphatic: No Adenopathy Results Lab Laboratory Tests 05/05/18 05:55: White Blood Count 3.4L, Red Blood Count 3.84L, Hemoglobin 11.5, Hematocrit 34L, Mean Corpuscular Volume 88, Mean Corpuscular Hemoglobin 30, Mean Corpuscular Hemoglobin Concent 34, Red Cell Distribution Width 11.7, Platelet Count 135, Mean Platelet Volume 9.4, Neutrophils (%) (Auto) 70, Lymphocytes (%) (Auto) 18, Monocytes (%) (Auto) 8, Eosinophils (%) (Auto) 4, Basophils (%) (Auto) 0, Neutrophils # (Auto) 2.4, Lymphocytes # (Auto) 0.6L, Monocytes # (Auto) 0.3, Eosinophils # (Auto) 0.1, Basophils # (Auto) 0.0, Sodium Level 140, Potassium Level 3.5L, Chloride Level 105, Carbon Dioxide Level 25, Anion Gap 10, Blood Urea Nitrogen 7, Creatinine 0.80, Estimat Glomerular Filtration Rate > 60, BUN/ Creatinine Ratio 9, Glucose Level 94, Calcium Level 9.3, Corrected Calcium 9.5, Total Bilirubin 0.5, Aspartate Amino Transf (AST/SGOT) 25, Alanine Aminotransferase (ALT/SGPT) 15, Alkaline Phosphatase 64, Total Protein 6.7, Albumin 3.8 Assessment/Plan Assessment/Plan Assessment/Plan Tubular adenoma Of cecum. Status post open right colectomy hypokalemia-replace potassium today Passing flatus, advance diet and if tolerates will dc home today. Clinical Quality Measures DVT/VTE Risk/Contraindication: Risk Factor Score Per Nursin RFS Level Per Nursing on Admit: 2=Moderate ALEX SEPULVEDA DO May 05, 2018 11:40
[2018-05-05 13:50] VITALS: BP 139/81
--- NOTE | 2018-05-06 03:36 | DISCHARGE SUMMARY ---
DATE OF SERVICE: ADMITTING DIAGNOSIS: Cecal polyp, status post right colectomy. DISCHARGE DIAGNOSES: 1. Cecal polyp, status post right colectomy. 2. Hypokalemia. ADMITTING PHYSICIAN: Alex Lowe DO. CONSULTING PHYSICIAN: Jose Friedman DO. HOSPITAL COURSE: The patient is a 58-year-old female who was found by endoscopy having a cecal flat polyp, which came back as tubular adenoma. This was unable to have endoscopic resection. The patient was discussed risks and benefits of right colectomy, which she understands risks and benefits of and wishes to proceed with. The patient electively had a right colectomy. Postoperatively, she was admitted to the hospital. The patient's pain was controlled. The patient was awaiting bowel function where she began having bowel function on 05/05/2018. She had some hypokalemia that was replaced. The patient today passing flatus and tolerating diet. The patient wanted to go home. Her pain is controlled with oral pain medications. The patient was discussed discharge instructions and wanting to go home. The patient is okay to be discharged home on 05/05/2018. Please see computer for further medication reconciliation and instructions. Job ID: [id number] DocumentID: [id number] Dictated Date: 05/05/2018 11:42:53 Cop Winder Date: 05/06/2018 03:35:04 Dictated By: ALEX LOWE DO MTDD
== END 2018-05-05 13:15 | disposition home or self-care (01) | DRG 331 ==
LOC: 4TH 08:06 → SURG 08:07 → 4TH 13:05
PROVIDERS: ADMIT Surgery; ATTEND Surgery
PROC: 0DTF0ZZ Resection of Right Large Intestine, Open Approach (ICD-10-PCS; principal; 2018-05-02 10:30)
DX: D12.0 Benign neoplasm of cecum (principal); E87.6 Hypokalemia; K21.9 Gastro-esophageal reflux disease without esophagitis; K44.9 Diaphragmatic hernia without obstruction or gangrene; F17.200 Nicotine dependence, unspecified, uncomplicated
CPT/HCPCS: 36415; 80048; 80053; 83735; 85025; 85027; 86850; 86900; 86901; 94664

== ENCOUNTER 2018-05-18 14:56 | Emergency (ER) | payer BC ==
[~2018-05-18] VITALS: Ht 162.6 cm; Wt 61.2 kg
[~2018-05-18 14:56] MED LIST changes: +DOCU-143 PO
[2018-05-18 16:00] VITALS: BP 112/64
--- NOTE | 2018-05-18 16:01 | ED General ---
General Chief Complaint: Skin/Wound Problems Stated Complaint: SORE AND RED AROUND SURGERY SCARS, 2 WEEKS POST OP Nursing Triage Note: PATIENT HAD BOWEL SURGERY FOR A TUBULAR ADENOMA ON 04/26. SHE IS DUE TO SEE DR. LOWE IN FOLLOW UP ON SUNDAY, HOWEVER SHE STATES THAT HER INCISION (PEE STILL IN PLACE) IS RED AND CAUSING HER PAIN. Nursing Sepsis Screen: No Definite Risk Source of Information: Patient Exam Limitations: No Limitations History of Present Illness Date Seen by Provider: May 18, 2018 Time Seen by Provider: 15:45 Allergies and Home Medications Allergies Coded Allergies: No Known Drug Allergies (Unverified , 04/30/18) Home Medications Docusate Sodium 100 Mg Capsule, 100 MG PO BID Prescribed by: ALEX LOWE on 05/05/18 1122 Hydrocodone Bit/Acetaminophen 1 Tab Tab, 1-2 TAB PO Q6H PRN for PAIN-MODERATE Prescribed by: ALEX LOWE on 05/05/18 1122 Pantoprazole Sodium 40 Mg Tablet.dr, 40 MG PO DAILY, (Reported) Past Gamswdz-Whyxtb-Gdyyes Hx Patient Social History Alcohol Use: Denies Use Recreational Drug Use: No Smoking Status: Former Smoker Type Used: Cigarettes Former Smoker, Quit: May 02, 2018 2nd Hand Smoke Exposure: Yes Recent Foreign Travel: No Contact w/Someone Who Travel: No Recent Infectious Disease Expo: No Recent Hopitalizations: No Physical Abuse: No Sexual Abuse: No Immunizations Up To Date Tetanus Booster (TDap): Unknown Date of Pneumonia Vaccine: Dec 24, 2014 Seasonal Allergies Seasonal Allergies: Yes (MILD) Past Medical History Surgeries: Yes (CTR RIGHT) Hysterectomy Respiratory: No Currently Using CPAP: No Currently Using BIPAP: No Cardiac: No Neurological: Yes Headaches /Migraines 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 Sexually Transmitted Disease: No HIV/AIDS: No Genitourinary: No Gastrointestinal: Yes (SOME ABD PAIN) Gastroesophageal Reflux, Polyps, Hiatal Hernia Musculoskeletal: No Endocrine: No HEENT: Yes (GLASSES, DENTURES) Cataract Loss of Vision: Bilateral Hearing Impairment: Denies Cancer: No Psychosocial: No Integumentary: No Blood Disorders: No Adverse Reaction/Blood Tranf: No (N/A) Family Medical History Alcoholism Alzheimer's disease Arthritis Cardiovascular disease Cataracts Completed stroke Coronary thrombosis Deafness or hearing loss Dementia Dysphasia Hypercholesterolemia Hypertension Myocardial infarction Parkinson's disease Psychosocial problem Respiratory disorder Severe allergy Thyroid disease Visual disorder Heart Disease Physical Exam Vital Signs Vital Signs - First Documented 05/18/18 15:07 Temp 98.4 Pulse 74 Resp 18 B/P (MAP) 118/63 (81) Pulse Ox 100 Capillary Refill : Less Than 3 Seconds Height, Weight, BMI Height: 5'4.00" Weight: 135lbs. 0oz. 61.362571ht; 23.3 BMI Method:Stated Progress/Results/Core Measures Suspected Sepsis Recent Fever Within 48 Hours: No Infection Criteria Present: None New/Unexplained Altered Menta: No Sepsis Screen: No Definite Risk SIRS Temperature:98.4 Pulse: 74 Respiratory Rate: 18 Blood Pressure 118 /63 Mean: 81 Results/Orders Vital Signs/I&O 05/18/18 15:07 Temp 98.4 Pulse 74 Resp 18 B/P (MAP) 118/63 (81) Pulse Ox 100 Capillary Refill : Less Than 3 Seconds Blood Pressure Mean: 81 Departure Impression Primary Impression: Wound, surgical, infected Disposition: 01 HOME, SELF-CARE Condition: Stable Departure-Patient Inst. Decision time for Depature: 15:55 Referrals: GILSON RIDDLE DO (PCP/Family) Primary Care Physician Patient Instructions: Wound Infection Add. Discharge Instructions: Complete your antibiotics as prescribed. Start them immediately. You may take a dose now and then again at bedtime to get 2 doses in today. Monitor your wound closely. Take a picture of it daily to monitor progress. Follow-up with Dr. Lowe as soon as possible. Return to care in the ER if you have worsening symptoms such as rapidly spreading redness, significantly increasing pain, puslike drainage, or temperature over 100. All discharge instructions reviewed with patient and/or family. Voiced understanding. Scripts Sulfamethoxazole/Trimethoprim (Bactrim Ds Tablet) 1 Each Tablet 1 EACH PO BID, #20 TAB Take your first 2 doses today, one now and one before bed. Prov: AKASH TILLEY MD 05/18/18 Copy Copies To 1: ALEX LOWE JOSHUA T MD May 18, 2018 16:01
[2018-05-18] MEDS ORDERED: SULF1TAB35 PO (16:06)
== END 2018-05-18 16:00 | disposition home or self-care (01) ==
LOC: EDUNIT# 14:56 → ER 14:58
DX: T81.40XA Infection following a procedure, unspecified, initial encounter (principal); G43.909 Migraine, unspecified, not intractable, without status migrainosus; K21.9 Gastro-esophageal reflux disease without esophagitis; Z82.49 Family history of ischemic heart disease and other diseases of the circulatory system; Z86.010 Personal history of colon polyps; Z98.890 Other specified postprocedural states; Z87.891 Personal history of nicotine dependence; Z90.710 Acquired absence of both cervix and uterus
CPT/HCPCS: 99282

== ENCOUNTER → 2018-06-05 | Outpatient (CLI) | payer BC ==
[~2018-06-05] MED LIST changes: +SULF1TAB35 PO
[2018-06-05 10:56] LABS: BUN/CREATININE RATIO 17; CALCIUM 9.2 MG/DL (8.5-10.1); CARBON DIOXIDE 26 MMOL/L (21-32); CHLORIDE 105 MMOL/L (98-107); CREATININE SERUM 0.87 MG/DL (0.60-1.30); GFR ESTIMATED > 60; GLUCOSE 99 MG/DL (70-105); POTASSIUM 3.7 MMOL/L (3.6-5.0); SODIUM 139 MMOL/L (135-145)
== END ==
LOC: LAB 10:21
PROVIDERS: ATTEND Surgery
DX: E83.51 Hypocalcemia (principal)
CPT/HCPCS: 36415; 80048

== ENCOUNTER 2018-10-08 20:30 | Emergency (ER) | payer BC ==
[~2018-10-08] VITALS: Ht 162.6 cm; Wt 61.2 kg
--- OUTSIDE RECORDS SUMMARY | 2018-10-08 20:35 | XMS REPORT ---
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 93916537 Problem Solitary pulmonary nodule 793.11 Active 756449325 Problem Family history of other cardiovascular diseases V17.49 Active 417647619 Problem Chest pain, unspecified 786.50 Active 14182037 Problem Shortness of breath 786.05 Active [id number] ALLERGIES No Information ENCOUNTERS Encounter Location Date Diagnosis [facility] [id number] [place] [phone] Jun, [facility] [id number] [place] [phone] Jun, [facility] [id number] [place] [phone] Nov, [facility] [id number] [place] [phone] Nov, [facility] [id number] [place] [phone] Oct, [facility] [id number] [place] [phone] Oct, [facility] [id number] [place] [id number] Oct, [facility] [id number] [place] [phone] Oct, [facility] [id number] [place] [phone] Oct, [facility] [place] [facility] [address] [id number] [place] [address] Oct, [facility] [place] [facility] [address] [id number] [place] [address] Oct, [facility] [place] [facility] [address] [id number] [place] [address] Oct, [facility] [place] [facility] [address] [id number] [place] [address] Sep, [facility] [place] [facility] [address] [id number] [place] [address] Sep, [facility] [place] [facility] [address] [id number] [place] [address] May, [facility] [place] [facility] [address] [facility] [id number] [place] [address] May, [facility] [place] [facility] [address] [id number] [place] [address] Apr, [facility] [place] [facility] [address] [id number] [place] [address] Apr, [facility] [place] [facility] [address] [facility] [id number] [place] [address] Apr, [facility] [place] [facility] [address] [facility] [id number] [place] [address] Apr, [facility] [place] [facility] [address] [id number], [place] [address] Apr, [facility] [place] [facility] [address] [id number] [place] [address] Apr, [facility] [place] [facility] [address] [id number] [place] [address] Apr, [facility] [place] [facility] [address] [facility] [id number] [place] [address] Feb, [facility] [place] [facility] [address] [id number] [place] [address] Feb, [facility] [address] [facility] [id number] [place] [address] Apr, IMMUNIZATIONS No Known Immunizations SOCIAL HISTORY Never Assessed REASON FOR VISIT EMR-[facility] [place] PLAN OF CARE VITAL SIGNS MEDICATIONS Unknown Medications RESULTS No Results PROCEDURES No Known procedures INSTRUCTIONS MEDICATIONS ADMINISTERED No Known Medications
--- OUTSIDE RECORDS SUMMARY | 2018-10-08 20:35 | XMS REPORT ---
Author Author Migration, Doctor Organization 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 12179699 Problem Solitary pulmonary nodule 793.11 Active 630835249 Problem Family history of other cardiovascular diseases V17.49 Active 264048459 Problem Chest pain, unspecified 786.50 Active 93861877 Problem Shortness of breath 786.05 Active 981255101 ALLERGIES No Information ENCOUNTERS Encounter Location Date Diagnosis [facility] [id number] [place] [phone] Jun, [facility] [id number] [place] [address] Jun, [facility] [id number] [place] [phone] Nov, [facility] [id number] [place] [phone] Nov, [facility] [id number] [place] [phone] Oct, [facility] [id number] [place] [phone] Oct, [facility] [id number] [place] [phone] Oct, [facility] [id number] [place] [phone] Oct, [facility] [id number] [place] [address] Oct, [facility] [place] [facility] [address] [id number] [place] [address] Oct, [facility] [place] [facility] [address] [id number] [place] [address] Oct, [facility] [place] [facility] [address] [id number] [place] [address] Oct, [facility] [place] [facility] [address] [id number] [place] [address] Sep, [facility] [place] [facility] [address] [id number] [place] [address] Sep, [facility] [place] [facility] [address] [id number] [place] [address] May, [facility] [place] [facility] [address] [facility] [id number] [place] [address] May, [facility] [place] [facility] [address] [id number] [place] [address] Apr, [facility] [place] [facility] [address] [id number] [place] [address] Apr, [facility] [place] [facility] [address] [facility] [id number] [place] [address] Apr, [facility] [place] [facility] [address] [facility] [id number] [place] [address] Apr, [facility] [place] [facility] [address] [id number], [place] [address] Apr, [facility] [place] [facility] [address] [id number] [place] [address] Apr, [facility] [place] [facility] [address] [id number] [place] [address] Apr, [facility] [place] [facility] [address] [facility] [id number] [place] [address] Feb, [facility] [place] [facility] [address] [id number] [place] [address] Feb, [facility] [address] [facility] [id number] [place] [address] Apr, IMMUNIZATIONS No Known Immunizations SOCIAL HISTORY Never Assessed REASON FOR VISIT [place] [place] VITAL SIGNS MEDICATIONS Unknown Medications RESULTS No Results PROCEDURES No Known procedures INSTRUCTIONS MEDICATIONS ADMINISTERED No Known Medications
--- OUTSIDE RECORDS SUMMARY | 2018-10-08 20:36 | XMS REPORT | Continuity of Care Document ---
Author Organization Unknown Address Unknown Allergies Active Description Code Type Severity Reaction Onset Reported/Identified Relationship to Patient Clinical Status Yes No Known Drug Allergies [id number] Drug Allergy Unknown N/A 04/30/2018 Medications There is no data. Problems Date Dx Coded Attending Type Code Diagnosis Diagnosed By 05/13/2008 BROOKLYN INGRAM DO 354.0 CARPAL TUNNEL SYNDROME 05/13/2008 BROOKLYN INGRAM DO 536.8 DYSPEPSIA 05/13/2008 BROOKLYN INGRAM DO K 565.0 ANAL FISSURE 05/13/2008 MIGDALIA BEAUCHAMP APRN R 354.0 CARPAL TUNNEL SYNDROME 05/13/2008 MIGDALIA BEAUCHAMP APRN R 536.8 DYSPEPSIA 05/13/2008 MIGDALIA BEAUCHAMP APRN R 565.0 ANAL FISSURE 05/13/2008 BROOKLYN INGRAM [...] V17.49 FAM HX CAD (DISEASE) 03/17/2013 QUYNH DIRECTOR PUBLIC, MIGDALIA R 305.1 TOBACCO ABUSE 03/17/2013 QUYNH DIRECTOR PUBLIC, MIGDALIA R 786.05 SHORTNESS OF BREATH 03/17/2013 QUYNH DIRECTOR PUBLIC, MIGDALIA R 786.50 CHEST PAIN 03/17/2013 QUYNH DIRECTOR PUBLIC, MIGDALIA R V17.49 FAM HX CAD (DISEASE) 03/17/2013 INGRAM DO, BROOKLYN K 305.1 TOBACCO ABUSE 03/17/2013 INGRAM DO, BROOKLYN K 786.05 SHORTNESS OF BREATH 03/17/2013 INGRAM DO, BROOKLYN K 786.50 CHEST PAIN 03/17/2013 INGRAM DO, BROOKLYN K V17.49 FAM HX CAD (DISEASE) 03/17/2013 QUYNH TAMEZ MIGDALIA R 305.1 TOBACCO ABUSE 03/17/2013 QUYNH DIRECTOR PUBLIC, MIGDALIA R 786.05 SHORTNESS OF BREATH 03/17/2013 QUYNH DIRECTOR PUBLIC, MIGDALIA R 786.50 CHEST PAIN 03/17/2013 QUYNH TAMEZ MIGDALIA R V17.49 FAM HX CAD (DISEASE) 04/17/2013 ROSY CAMARA [facility], ALI FACP CCDS Ot 276.8 04/17/2013 ROSY CAMARA FAC, ALI FACP CCDS Ot 305.1 04/17/2013 ROSY CAMARA [facility], ALI FACP CCDS Ot 786.50 04/17/2013 ROSY CAMARA FAC, ALI FACP CCDS Ot V03.82 04/17/2013 ROSY CAMARA FAC, ALI FACP CCDS Ot V04.81 04/17/2013 ROSY CAMARA [facility], ALI FACP CCDS Ot V17.3 04/30/2013 VIVIAN BEAUCHAMP APRNINA 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 04/30/2013 INGRAM DO, BROOKLYN 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 04/30/2013 QUYNH TAMEZ MIGDALIA 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 11/19/2013 VIVIAN BEAUCHAMP APRNINA 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 05/04/2015 ROSY CAMARA [facility], ALI FACP CCDS Ot 786.50 05/04/2015 MIGDALIA BEAUCHAMP DIRECTOR PUBLIC Ot 793.11 05/12/2015 SUDARSHAN CAMARA, NEO Hernández Ot G56.01 CARPAL TUNNEL SYNDROME, RIGHT UPPER LIMB 05/12/2015 SUDARSHAN CAMARA, NEO Hernández Ot Z11.2 ENCOUNTER FOR SCREENING FOR OTHER BACTER 09/12/2016 ODALIS MAYS DIRECTOR PUBLIC Ot F17.210 NICOTINE DEPENDENCE, CIGARETTES, UNCOMPL 09/12/2016 ODALIS MASY APRN Ot M94.0 CHONDROCOSTAL JUNCTION SYNDROME [TIETZE] 09/12/2016 ODALIS MAYS APRN Ot R07.9 CHEST PAIN, UNSPECIFIED 09/12/2016 ODALIS MAYS APRN Ot Z79.82 THEATRICAL PERFORMER (CURRENT) USE OF ASPIRIN 09/12/2016 ODALIS MAYS [...] UNSPECIFIED 09/14/2016 ODALIS MAYS APRN Ot Z79.82 THEATRICAL PERFORMER (CURRENT) USE OF ASPIRIN 09/14/2016 ODALIS MAYS APRN Ot Z82.49 FAMILY HX OF ISCHEM HEART DIS AND OTH DI 09/14/2016 ODALIS MAYS APRN Ot Z87.898 PERSONAL HISTORY OF OTHER SPECIFIED COND 10/01/2017 ODALIS MAYS APRN Ot F17.210 NICOTINE DEPENDENCE, CIGARETTES, UNCOMPL 10/01/2017 ODALIS MAYS APRN Ot R07.89 OTHER CHEST PAIN 10/01/2017 ODALIS MAYS APRN Ot Z90.710 ACQUIRED ABSENCE OF BOTH CERVIX AND UTER 10/03/2017 ODALIS MAYS APRN Ot F17.210 NICOTINE DEPENDENCE, CIGARETTES, UNCOMPL 10/03/2017 ODALIS MAYS APRN Ot R07.89 OTHER CHEST PAIN 10/03/2017 MAYSODALIS GARCÍA Susan TAMEZ Ot Z90.710 ACQUIRED ABSENCE OF BOTH CERVIX AND UTER 03/27/2018 SEPULVEDAALEX DUNN DO Ot Z01.818 ENCOUNTER FOR OTHER PREPROCEDURAL EXAMIN 04/02/2018 SEPULVEDAMALIK DUNN DOTT D Ot D12.0 BENIGN NEOPLASM OF CECUM 04/02/2018 SEPULVEDA DO ALEX D Ot D12.4 BENIGN NEOPLASM OF DESCENDING COLON 04/02/2018 SEPULVEDA DO ALEX D Ot F17.200 NICOTINE DEPENDENCE, UNSPECIFIED, UNCOMP 04/02/2018 SEPULVEDA DO ALEX D Ot K29.70 GASTRITIS, UNSPECIFIED, WITHOUT BLEEDING 04/02/2018 MALIK SEPULVEDA DOTT D Ot K44.9 DIAPHRAGMATIC HERNIA WITHOUT OBSTRUCTION 04/02/2018 ALEX SEPULVEDA DO D Ot K64.8 OTHER HEMORRHOIDS 04/02/2018 ALEX SEPULVEDA DO Ot R13.10 DYSPHAGIA, UNSPECIFIED 04/08/2018 ALEX SEPULVEDA DO Ot D12.0 BENIGN NEOPLASM OF CECUM 04/08/2018 SEPULVEDA DOMALIKTT D Ot D12.4 BENIGN NEOPLASM OF DESCENDING COLON 04/08/2018 SEPULVEDA DO ALEX D Ot F17.200 NICOTINE DEPENDENCE, UNSPECIFIED, UNCOMP 04/08/2018 COCO SIEGEL ALEX D Ot K29.70 GASTRITIS, UNSPECIFIED, WITHOUT BLEEDING 04/08/2018 MALIK SEPULVEDA DOTT D Ot K44.9 DIAPHRAGMATIC HERNIA WITHOUT OBSTRUCTION 04/08/2018 MALIK SEPULVEDA DOTT D Ot K64.8 OTHER HEMORRHOIDS 04/08/2018 MALIK SEPULVEDA DOTT Rcik Ot R13.10 DYSPHAGIA, UNSPECIFIED 04/30/2018 MALIK SEPULVEDA DOTT D Ot D12.6 BENIGN NEOPLASM OF COLON, UNSPECIFIED 04/30/2018 ALEX SEPULVEDA DO D Ot Z01.812 ENCOUNTER FOR PREPROCEDURAL LABORATORY E 05/01/2018 ALEX SEPULVEDA DO Ot D12.6 BENIGN NEOPLASM OF COLON, UNSPECIFIED 05/01/2018 ALEX SEPULVEDA DO Ot Z01.812 ENCOUNTER FOR PREPROCEDURAL LABORATORY E 05/05/2018 ALEX SEPULVEDA DO D Ot D12.0 BENIGN NEOPLASM OF CECUM 05/05/2018 ALEX SEPULVEDA DO Ot E87.6 HYPOKALEMIA 05/05/2018 ALEX SEPULVEDA DO Ot F17.200 NICOTINE DEPENDENCE, UNSPECIFIED, UNCOMP 05/05/2018 ALEX SEPULVEDA DO Ot K21.9 GASTRO-ESOPHAGEAL REFLUX DISEASE WITHOUT 05/05/2018 ALEX SEPULVEDA DO Ot K44.9 DIAPHRAGMATIC HERNIA WITHOUT OBSTRUCTION 05/18/2018 AKASH TILLEY MD Ot G43.909 MIGRAINE, UNSP, NOT INTRACTABLE, WITHOUT 05/18/2018 AKASH TILLEY MD Ot K21.9 GASTRO-ESOPHAGEAL REFLUX DISEASE WITHOUT 05/18/2018 AKASH TILLEY MD Ot T81.40XA INFECTION FOLLOWING A PROCEDURE, UNSPECI 05/18/2018 AKASH TILLEY MD Ot Z82.49 FAMILY HX OF ISCHEM HEART DIS AND OTH DI 05/18/2018 AKASH TILLEY MD Ot Z86.010 PERSONAL HISTORY OF COLONIC POLYPS 05/18/2018 AKASH TILLEY MD Ot Z87.891 PERSONAL HISTORY OF NICOTINE DEPENDENCE 05/18/2018 AKASH TILLEY MD Ot Z90.710 ACQUIRED ABSENCE OF BOTH CERVIX AND UTER 05/18/2018 AKASH TILLEY MD Ot Z98.890 OTHER SPECIFIED POSTPROCEDURAL STATES 05/21/2018 AKASH TILLEY MD Ot G43.909 MIGRAINE, UNSP, NOT INTRACTABLE, WITHOUT 05/21/2018 AKASH TILLEY MD Ot K21.9 GASTRO-ESOPHAGEAL REFLUX DISEASE WITHOUT 05/21/2018 AKASH TILLEY MD Ot T81.40XA INFECTION FOLLOWING A PROCEDURE, UNSPECI 05/21/2018 AKASH TILLEY MD Ot Z82.49 FAMILY HX OF ISCHEM HEART DIS AND OTH DI 05/21/2018 AKASH TILLEY MD Ot Z86.010 PERSONAL HISTORY OF COLONIC POLYPS 05/21/2018 AKASH TILLEY MD Ot Z87.891 PERSONAL HISTORY OF NICOTINE DEPENDENCE 05/21/2018 AKASH TILLEY MD Ot Z90.710 ACQUIRED ABSENCE OF BOTH CERVIX AND UTER 05/21/2018 AKASH TILLEY MD Ot Z98.890 OTHER SPECIFIED POSTPROCEDURAL STATES 06/07/2018 Ot E83.51 HYPOCALCEMIA Procedures Code Description [place] [address] EKG, TRACING (IN-HOUSE) 03/17/2013 65713 OXIMETRY 03/17/2013 Cardiolog Joey Gallegos 03/20/2013 25181 ECHO 2D 04/30/2013 48949 XRAY CHEST 2 VIEW 11/06/2013 91059 EKG, TRACING 11/06/2013 34367 LIPID PANEL 11/06/2013 22346 MAGNESIUM 11/06/2013 11236 CBC 11/06/2013 11581 CMP 11/06/2013 4836103 GFR CALC (RESULT ONLY) 11/06/2013 09788 TSH 11/06/2013 31450 MAMMOGRAM, SCREENING 11/12/[address] CHEST W/DYE 11/19/2013 65563 NUCLEAR STRESS TESTING 11/19/2013 19855 OXIMETRY 11/19/2013 [id number] RESECTION OF RIGHT LARGE INTESTINE, OPEN 05/02/2018 Results Test Result Range Complete blood count [...] Automated erythrocyte mean corpuscular hemoglobin concentration measurement (mass/volume) 34 g/dL 32-36 Automated erythrocyte distribution width ratio 11.8 % 10.0- 14.5 Automated blood platelet count (count/volume) 185 10*3/uL [...] Blood monocytes automated count (number/volume) 0.3 10*3 0.0- 1.0 Automated eosinophil count 0.4 10*3/uL 0.0-0.3 Automated [...] or plasma urea nitrogen/creatinine mass ratio 13 0- 20 Serum or plasma creatinine measurement with calculation of estimated glomerular filtration rate > NRG Serum or plasma glucose measurement (mass/volume) 104 mg/dL 70-105 Serum or plasma calcium measurement (mass/volume) 9.4 mg/dL 8.5-10.1 Serum or plasma total bilirubin measurement (mass/volume) 0.7 mg/dL 0.1-1.0 Serum or plasma alkaline phosphatase measurement (enzymatic activity/volume) 68 U/L 40-136 Serum or plasma aspartate aminotransferase measurement (enzymatic activity/volume) 17 U/L 5-34 Serum or plasma alanine aminotransferase measurement (enzymatic activity/volume) 11 U/L 0-55 Serum or plasma protein measurement (mass/volume) 7.4 g/dL 6.4-8.2 Serum or plasma albumin measurement (mass/volume) 4.2 g/dL 3.2-4.5 Serum or plasma troponin i.cardiac measurement (mass/volume) - 09/12/16 11:27 Serum or plasma troponin i.cardiac measurement (mass/volume) < ng/mL <0.30 Complete blood count (CBC) with automated [...] Automated erythrocyte mean corpuscular hemoglobin concentration measurement (mass/volume) 35 g/dL 32-36 Automated erythrocyte distribution width ratio 12.6 % 10.0- 14.5 Automated blood platelet count (count/volume) 205 10*3/uL [...] Blood monocytes automated count (number/volume) 0.1 10*3 0.0- 1.0 Automated eosinophil count 0.1 10*3/uL 0.0-0.3 Automated [...] Serum or plasma aspartate aminotransferase measurement (enzymatic activity/volume) 17 U/L 5-34 Serum or plasma alanine aminotransferase measurement (enzymatic activity/volume) 12 U/L 0-55 Serum or plasma protein measurement (mass/volume) 7.9 g/dL 6.4-8.2 Serum or plasma albumin measurement (mass/volume) 4.7 g/dL 3.2-4.5 Magnesium - 10/01/17 19:50 Magnesium 2.5 mg/dL 1.8-2.4 Serum or plasma troponin i.cardiac measurement (mass/volume) - 10/01/17 19:50 Serum or plasma troponin i.cardiac measurement (mass/volume) < ng/mL <0.30 Myoglobin, serum - 10/01/17 19:50 Myoglobin, [...] poor plasma bycoagulation assay 30 s 24-35 Complete blood count (CBC) with automated white blood cell (WBC) differential - 04/30/18 11:15 Blood leukocytes automated count (number/volume) 3.3 10*3/uL 4.3-11.0 Blood erythrocytes automated count (number/volume) 4.31 10*6/uL 4.35-5.85 Venous blood hemoglobin measurement (mass/volume) 13.1 g/dL 11.5-16.0 Blood hematocrit (volume fraction) 38 % 35-52 Automated erythrocyte mean corpuscular volume 87 [foz_us] 80-99 Automated erythrocyte mean corpuscular hemoglobin (mass per erythrocyte) 30 pg 25-34 Automated erythrocyte mean corpuscular hemoglobin concentration measurement (mass/volume) 35 g/dL 32-36 Automated erythrocyte distribution width ratio 12.1 % 10.0- 14.5 Automated blood platelet count (count/volume) 227 10*3/uL 130-400 Automated blood platelet mean volume measurement 9.2 [foz_us] 7.4-10.4 Automated blood neutrophils/100 leukocytes 63 % 42-75 Automated blood lymphocytes/100 leukocytes 24 % 12-44 Blood monocytes/100 leukocytes 6 % 0-12 Automated blood eosinophils/100 leukocytes 7 % 0-10 Automated blood basophils/100 leukocytes 0 % 0-10 Blood neutrophils automated count (number/volume) 2.1 10*3 1.8-7.8 Blood lymphocytes automated count (number/volume) 0.8 10*3 1.0-4.0 Blood monocytes automated count (number/volume) 0.2 10*3 0.0- 1.0 Automated eosinophil count 0.2 10*3/uL 0.0-0.3 Automated blood basophil count (count/volume) 0.0 10*3/uL 0.0-0.1 Blood type T Indirect antibody screen panel - 04/30/18 11:15 ABO+Rh group OP NRG Blood group antibody screen NEGATIVE NRG Methicillin resistant Staphylococcus aureus (MRSA) screening culture - 04/30/18 11:15 Methicillin resistant Staphylococcus aureus (MRSA) screening culture NEG NRG Blood type T Indirect antibody screen panel - 05/02/18 08:25 ABO+Rh group OP NRG Transfusion band number [id number] NRG Blood group antibody screen NEGATIVE NRG Complete blood count (CBC) with automated white blood cell (WBC) differential - 05/03/18 13:45 Blood leukocytes automated count (number/volume) 7.3 10*3/uL 4.3-11.0 Blood erythrocytes automated count (number/volume) 3.63 10*6/uL 4.35-5.85 Venous blood hemoglobin measurement (mass/volume) 11.0 g/dL 11.5-16.0 Blood hematocrit (volume fraction) 32 % 35-52 Automated erythrocyte mean corpuscular volume 89 [foz_us] 80-99 Automated erythrocyte mean corpuscular hemoglobin (mass per erythrocyte) 30 pg 25-34 Automated erythrocyte mean corpuscular hemoglobin concentration measurement (mass/volume) 34 g/dL 32-36 Automated erythrocyte distribution width ratio 12.0 % 10.0- 14.5 Automated blood platelet count (count/volume) 144 10*3/uL 130-400 Automated blood platelet mean volume measurement 9.2 [foz_us] 7.4-10.4 Automated blood neutrophils/100 leukocytes 85 % 42-75 Automated blood lymphocytes/100 leukocytes 8 % 12-44 Blood monocytes/100 leukocytes 7 % 0-12 Automated blood eosinophils/100 leukocytes 0 % 0-10 Automated blood basophils/100 leukocytes 0 % 0-10 Blood neutrophils automated count (number/volume) 6.2 10*3 1.8-7.8 Blood lymphocytes automated count (number/volume) 0.6 10*3 1.0-4.0 Blood monocytes automated count (number/volume) 0.5 10*3 0.0- 1.0 Automated eosinophil count 0.0 10*3/uL 0.0-0.3 Automated blood basophil count (count/volume) 0.0 10*3/uL 0.0-0.1 Whole blood basic metabolic panel - 05/03/18 13:45 Serum or plasma sodium measurement (moles/volume) 142 mmol/L 135-145 Serum or plasma potassium measurement (moles/volume) 3.6 mmol/L 3.6-5.0 Serum or plasma chloride measurement (moles/volume) 108 mmol/L 98-107 Carbon dioxide 24 mmol/L 21-32 Serum or plasma anion gap determination (moles/volume) 10 mmol/L 5-14 Serum or plasma urea nitrogen measurement (mass/volume) 11 mg/dL 7-18 Serum or plasma creatinine measurement (mass/volume) 0.90 mg/dL 0.60-1.30 Serum or plasma urea nitrogen/creatinine mass ratio 12 NRG Serum or plasma creatinine measurement with calculation of estimated glomerular filtration rate > NRG Serum or plasma glucose measurement (mass/volume) 107 mg/dL 70-105 Serum or plasma calcium measurement (mass/volume) 9.1 mg/dL 8.5-10.1 Automated blood complete blood count (hemogram) panel - 05/04/18 05:52 Blood leukocytes automated count (number/volume) 3.4 10*3/uL 4.3-11.0 Blood erythrocytes automated count (number/volume) 3.39 10*6/uL 4.35-5.85 Venous blood hemoglobin measurement (mass/volume) 10.3 g/dL 11.5-16.0 Blood hematocrit (volume fraction) 30 % 35-52 Automated erythrocyte mean corpuscular volume 89 [foz_us] 80-99 Automated erythrocyte mean corpuscular hemoglobin (mass per erythrocyte) 30 pg 25-34 Automated erythrocyte mean corpuscular hemoglobin concentration measurement (mass/volume) 34 g/dL 32-36 Automated erythrocyte distribution width ratio 12.3 % 10.0- 14.5 Automated blood platelet count (count/volume) 131 10*3/uL 130-400 Automated blood platelet mean volume measurement 9.3 [foz_us] 7.4-10.4 Whole blood basic metabolic panel - 05/04/18 05:52 Serum or plasma sodium measurement (moles/volume) 142 mmol/L 135-145 Serum or plasma potassium measurement (moles/volume) 3.3 mmol/L 3.6-5.0 Serum or plasma chloride measurement (moles/volume) 109 mmol/L 98-107 Carbon dioxide 25 mmol/L 21-32 Serum or plasma anion gap determination (moles/volume) 8 mmol/L 5-14 Serum or plasma urea nitrogen measurement (mass/volume) 9 mg/dL 7-18 Serum or plasma creatinine measurement (mass/volume) 0.84 mg/dL 0.60-1.30 Serum or plasma urea nitrogen/creatinine mass ratio 11 NRG Serum or plasma creatinine measurement with calculation of estimated glomerular filtration rate > NRG Serum or plasma glucose measurement (mass/volume) 98 mg/dL 70-105 Serum or plasma calcium measurement (mass/volume) 8.5 mg/dL 8.5-10.1 Magnesium - 05/04/18 05:52 Magnesium 2.1 mg/dL 1.8-2.4 Complete blood count (CBC) with automated white blood cell (WBC) differential - 05/05/18 05:55 Blood leukocytes automated count (number/volume) 3.4 10*3/uL 4.3-11.0 Blood erythrocytes automated count (number/volume) 3.84 10*6/uL 4.35-5.85 Venous blood hemoglobin measurement (mass/volume) 11.5 g/dL 11.5-16.0 Blood hematocrit (volume fraction) 34 % 35-52 Automated erythrocyte mean corpuscular volume 88 [foz_us] 80-99 Automated erythrocyte mean corpuscular hemoglobin (mass per erythrocyte) 30 pg 25-34 Automated erythrocyte mean corpuscular hemoglobin concentration measurement (mass/volume) 34 g/dL 32-36 Automated erythrocyte distribution width ratio 11.7 % 10.0- 14.5 Automated blood platelet count (count/volume) 135 10*3/uL 130-400 Automated blood platelet mean volume measurement 9.4 [foz_us] 7.4-10.4 Automated blood neutrophils/100 leukocytes 70 % 42-75 Automated blood lymphocytes/100 leukocytes 18 % 12-44 Blood monocytes/100 leukocytes 8 % 0-12 Automated blood eosinophils/100 leukocytes 4 % 0-10 Automated blood basophils/100 leukocytes 0 % 0-10 Blood neutrophils automated count (number/volume) 2.4 10*3 1.8-7.8 Blood lymphocytes automated count (number/volume) 0.6 10*3 1.0-4.0 Blood monocytes automated count (number/volume) 0.3 10*3 0.0- 1.0 Automated eosinophil count 0.1 10*3/uL 0.0-0.3 Automated blood basophil count (count/volume) 0.0 10*3/uL 0.0-0.1 Comprehensive metabolic panel - 05/05/18 05:55 Serum or plasma sodium measurement (moles/volume) 140 mmol/L 135-145 Serum or plasma potassium measurement (moles/volume) 3.5 mmol/L 3.6-5.0 Serum or plasma chloride measurement (moles/volume) 105 mmol/L 98-107 Carbon dioxide 25 mmol/L 21-32 Serum or plasma anion gap determination (moles/volume) 10 mmol/L 5-14 Serum or plasma urea nitrogen measurement (mass/volume) 7 mg/dL 7-18 Serum or plasma creatinine measurement (mass/volume) 0.80 mg/dL 0.60-1.30 Serum or plasma urea nitrogen/creatinine mass ratio 9 NRG Serum or plasma creatinine measurement with calculation of estimated glomerular filtration rate > NRG Serum or plasma glucose measurement (mass/volume) 94 mg/dL 70-105 Serum or plasma calcium measurement (mass/volume) 9.3 mg/dL 8.5-10.1 Serum or plasma total bilirubin measurement (mass/volume) 0.5 mg/dL 0.1-1.0 Serum or plasma alkaline phosphatase measurement (enzymatic activity/volume) 64 U/L 40-136 Serum or plasma aspartate aminotransferase measurement (enzymatic activity/volume) 25 U/L 5-34 Serum or plasma alanine aminotransferase measurement (enzymatic activity/volume) 15 U/L 0-55 Serum or plasma protein measurement (mass/volume) 6.7 g/dL 6.4-8.2 Serum or plasma albumin measurement (mass/volume) 3.8 g/dL 3.2-4.5 CALCIUM CORRECTED 9.5 mg/dL 8.5-10.1 Whole blood basic metabolic panel - 06/05/18 10:30 Serum or plasma sodium measurement (moles/volume) 139 mmol/L 135-145 Serum or plasma potassium measurement (moles/volume) 3.7 mmol/L 3.6-5.0 Serum or plasma chloride measurement (moles/volume) 105 mmol/L 98-107 Carbon dioxide 26 mmol/L 21-32 Serum or plasma anion gap determination (moles/volume) 8 mmol/L 5-14 Serum or plasma urea nitrogen measurement (mass/volume) 15 mg/dL 7-18 Serum or plasma creatinine measurement (mass/volume) 0.87 mg/dL 0.60-1.30 Serum or plasma urea nitrogen/creatinine mass ratio 17 NRG Serum or plasma creatinine measurement with calculation of estimated glomerular filtration rate > NRG Serum or plasma glucose measurement (mass/volume) 99 mg/dL 70-105 Serum or plasma calcium measurement (mass/volume) 9.2 mg/dL 8.5-10.1 Encounters ACCT No. Visit Date/Time Discharge Status Pt. Type Provider Facility Loc./Unit Complaint [id number] 11/19/2013 08:24:00 11/19/2013 23:59:59 [facility] Outpatient MIGDALIA BEAUCHAMP APRN [id number] 11/12/2013 08:21:00 11/12/2013 23:59:59 [facility] Outpatient BROOKLYN INGRAM DO [id number] 04/30/2013 08:52:00 04/30/2013 23:59:59 [facility] Outpatient MIGDALIA BEAUCHAMP APRN [id number] 03/17/2013 14:48:00 03/17/2013 23:59:59 CLS Outpatient BROOKLYN INGRAM DO [id number] 05/18/2018 14:58:00 05/18/2018 16:00:00 DIS Emergency JAREK CAMARA, AKASH Rees [facility] ER SORE AND RED AROUND SURGERY SCARS, 2 WEEKS POST OP [id number] 05/02/2018 08:06:00 05/05/2018 13:15:00 DIS Inpatient ALEX SEPULVEDA DO [facility] 4TH TUBULAR ADENOMA [id number] 04/30/2018 10:48:00 04/30/2018 11:57:00 DIS Outpatient ALEX SEPULVEDA DO [facility] PREOP LAPAROSCOPIC HAND-ASSISTED RIGHT COLON RESECTION [id number] 04/02/2018 09:06:00 04/02/2018 10:50:00 DIS Outpatient ALEX SEPULVEDA DO [facility] ENDO DYSPHAGIA/BLOOD IN STOOL [id number] 03/27/2018 05:56:00 03/27/2018 13:28:00 DIS Outpatient ALEX SEPULVEDA DO [facility] PREOP COLONOSCOPY/EGD [id number] 10/01/2017 19:43:00 10/01/2017 20:33:00 DIS Emergency ODALIS MAYS APRN [facility] ER POSS REACTION TO NEW MED [id number] 09/12/2016 11:23:00 09/12/2016 12:35:00 DIS Emergency ODALIS MAYS APRN [facility] ER CHEST PAIN [id number] 05/12/2015 08:04:00 05/12/2015 11:15:00 DIS Outpatient NEO HEATON MD [facility] RIGHT CARPEL TUNNEL SYNDROME [id number] 05/06/2015 11:08:00 05/06/2015 23:59:59 CLS Outpatient NEO HEATON MD [facility] PREOP [id number] 11/21/2013 12:18:00 11/21/2013 23:59:59 CLS Outpatient MIGDALIA BEAUCHAMP APRN [facility] RAD [id number] 04/25/2013 09:07:00 04/25/2013 23:59:59 CLS Outpatient JOEY GALLEGOS MD, FACC, FACP CCDS [facility] CARD [id number] 04/16/2013 20:30:00 04/17/2013 14:20:00 DIS Inpatient JOEY GALLEGOS MD, FACC, FACP CCDS [facility] [id number] 07/30/2012 09:30:00 07/30/2012 14:30:00 DIS Inpatient SAIDA ALEXANDER MD [facility] SURGICAL [id number] 07/27/2012 10:33:00 07/27/2012 23:59:59 CLS Outpatient [id number] 06/05/2018 10:56:00 Document Registration [id number] 05/04/2015 09:35:00 Document Registration [id number] 05/04/2015 09:35:00 Document Registration [id number] 03/12/2012 13:26:00 Document Registration [id number] 10/09/2011 21:43:00 Document Registration [id number] 12/18/2009 08:37:00 Document Registration
--- OUTSIDE RECORDS SUMMARY | 2018-10-08 20:36 | XMS REPORT ---
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 02848329 Problem Solitary pulmonary nodule 793.11 Active 367396938 Problem Family history of other cardiovascular diseases V17.49 Active 357922138 Problem Chest pain, unspecified 786.50 Active 83906295 Problem Shortness of breath 786.05 Active 292762101 ALLERGIES No Information ENCOUNTERS Encounter Location Date Diagnosis [facility] [id number] [place] [phone] Jun, [facility] [id number] [place] [phone] Jun, [facility] [id number] [place] [phone] Nov, [facility] [id number] [place] [phone] Nov, [facility] [id number] [place] [phone] Oct, [facility] [id number] [place] [phone] Oct, [facility] [id number] [place] [phone] Oct, [facility] [id number] [place] [phone] Oct, [facility] [id number] [place] [phone] Oct, [facility] [place] [facility] [address] [id number] [place] [address] Oct, [facility] [place] [facility] [address] [id number] [place] [address] Oct, [facility] [place] [facility] [address] [id number] [place] [address] Oct, [facility] [place] [facility] [address] [id number] [place] [address] Sep, [facility] [place] [facility] [address] [id number] [place] [address] Sep, [facility] [place] [facility] [address] [id number] [place] [address] May, [facility] [place] [facility] [address] [facility] [id number] [place] [address] May, [facility] [place] [facility] [address] [id number] [place] [address] Apr, [facility] [place] [facility] [address] [id number] [place] [address] Apr, [facility] [place] [facility] [address] [facility] [id number] [place] [address] Apr, [facility] [place] [facility] [address] [facility] [id number] [place] [address] Apr, [facility] [place] [facility] [address] [id number], [place] [address] Apr, [facility] [place] [facility] [address] [id number] [place] [address] Apr, [facility] [place] [facility] [address] [id number] [place] [address] Apr, [facility] [place] [facility] [address] [facility] [id number] [place] [address] Feb, [facility] [place] [facility] [address] [id number] [place] [address] Feb, [facility] [address] [facility] [id number] [place] [address] Apr, IMMUNIZATIONS No Known Immunizations SOCIAL HISTORY Never Assessed REASON FOR [place] [place] VITAL SIGNS MEDICATIONS Medication Instructions Dosage Frequency Start Date End Date Duration Status Aspirin 81 mg 1 tablet by Oral route 1 time per day pt reports she takes every other day or so Oct, Active Omeprazole 20 mg 1 Tablet by PO route 1 time per day Oct, Active RESULTS No Results PROCEDURES No Known procedures INSTRUCTIONS MEDICATIONS ADMINISTERED No Known Medications
[2018-10-08] MEDS ORDERED: NS IV 1000 ML 1,000 ML IV ONE (21:01)
[2018-10-08 21:09] LABS: BILIRUBIN,URINE NEGATIVE (NEGATIVE); CLARITY,URINE CLEAR; COLOR,URINE YELLOW; GLUCOSE, URINE (UA) NEGATIVE (NEGATIVE); KETONES,URINE NEGATIVE (NEGATIVE); LEUKOCYTE ESTERASE ,URINE 2+ (NEGATIVE); NITRITE,URINE NEGATIVE (NEGATIVE); PH,URINE 5 (5-9); PROTEIN,URINE NEGATIVE (NEGATIVE); UROBILINOGEN,URINE NORMAL (NORMAL)
[2018-10-08 21:10] LABS: BASOPHILS % (AUTO) 0 % (0-10); EOSINOPHILS # (AUTO) 0.3 10^3/uL (0.0-0.3); EOSINOPHILS % (AUTO) 7 % (0-10); HEMATOCRIT 35 % (35-52); HEMOGLOBIN 11.8 G/DL (11.5-16.0); LYMPHOCYTES # (AUTO) 1.4 X 10^3 (1.0-4.0); LYMPHOCYTES % (AUTO) 29 % (12-44); MEAN CORPUSCULAR HEMOGLOBIN 30 PG (25-34); MEAN CORPUSCULAR HGB CONC 34 G/DL (32-36); MEAN CORPUSCULAR VOLUME 89 FL (80-99); MEAN PLATELET VOLUME 9.6 FL (7.4-10.4); MONOCYTES # (AUTO) 0.4 X 10^3 (0.0-1.0); MONOCYTES % (AUTO) 7 % (0-12); NEUTROPHILS # (AUTO) 2.8 X 10^3 (1.8-7.8); NEUTROPHILS % (AUTO) 57 % (42-75); PLATELET COUNT 180 10^3/uL (130-400); RED CELL DISTRIBUTION WIDTH 12.4 % (10.0-14.5)
--- NOTE | 2018-10-08 21:12 | ED GI ---
General Chief Complaint: Rect Problems Stated Complaint: RECTAL BLEEDING Nursing Triage Note: pt has c/o rectal bleeding for three days. Pt states it is heavy. Pt has had a colon resection. Denies pain. Sepsis Screen: No Definite Risk Source of Information: Patient History of Present Illness Date Seen by Provider: Oct 08, 2018 Time Seen by Provider: 20:55 Initial Comments PT ARRIVES VIA POV FROM HOME C/O RECTAL BLEEDING FOR THE LAST 3 DAYS HAVING BRIGHT RED BLOOD MIXED WITH FORMED STOOLS--STATES BLEEDING WAS A LITTLE WORSE TONIGHT HAS HAD 6 STOOLS TODAY NO RECTAL PAIN OCCASIONALLY HAS LOWER ABDOMINAL PAIN --SHARP, SHOOTING PAIN--THEN LATER POINTS TO EPIGASTRIC AREA AREA OF PAIN AND STATES SHE IS HAVING PAIN THERE NOW. NO FEVER NO NAUSEA/VOMITING NO URINARY SYMPTOMS NO DIZZINESS OR SYNCOPE PT IS NOT ON ASPIRIN OR BLOOD THINNERS PT HAS HAD THE SAME PROBLEM IN THE PAST, AND THIS IS NO DIFFERENT IN ANY WAY PT HAD COLONOSCOPY IN APRIL, AND POLYPS WERE FOUND, AND THEN PT HAD COLON RESECTION FOR POLYPS--DONE BY DR. SEPULVEDA NO PROBLEMS AFTER SURGERY PT HAD AN APPOINTMENT YESTERDAY WITH DR. SEPULVEDA FOR THIS PROBLEM, BUT DID NOT GO ( CALLED YESTERDAY AND MADE THE APPOINTMENT)--"FORGOT ALL ABOUT IT" --DID NOT ATTEMPT TO RESCHEDULE. Allergies and Home Medications Allergies Coded Allergies: No Known Drug Allergies (Unverified , 04/30/18) Home Medications Ciprofloxacin HCl 500 Mg Tablet, 500 MG PO BID Prescribed by: JESSICA IBARRA on 10/08/182242 Docusate Sodium 100 Mg Capsule, 100 MG PO BID Prescribed by: ALEX SEPULVEDA on 05/05/18 112 Hydrocodone Bit/Acetaminophen 1 Tab Tab, 1-2 TAB PO Q6H PRN for PAIN-MODERATE Prescribed by: ALEX SEPULVEDA on 05/05/18 112 Lactobacillus Acidophilus 1 Each Capsule, 2 EACH PO QID Prescribed by: JESSICA IBARRA on 10/08/182242 Metronidazole 500 Mg Tablet, 500 MG PO QID Prescribed by: JESSICA IBARRA on 10/08/182242 Pantoprazole Sodium 40 Mg Tablet.dr 40 MG PO DAILY, (Reported) Sulfamethoxazole/Trimethoprim 1 Each Tablet, 1 EACH PO BID Take your first 2 doses today, one now and one before bed. Prescribed by: AKASH ANN on 05/18/18 1606 Patient Home Medication List Home Medication List Reviewed: Yes Review of Systems Review of Systems Constitutional: no symptoms reported Respiratory: No Symptoms Reported Cardiovascular: No Symptoms Reported Gastrointestinal: See HPI, Abdominal Pain; Denies Constipated, Denies Diarrhea, Denies Nausea; Rectal Bleeding; Denies Vomiting Genitourinary: No Symptoms Reported Musculoskeletal: no symptoms reported Skin: no symptoms reported Psychiatric/Neurological: No Symptoms Reported Endocrine: No Symptoms Reported Hematologic/Lymphatic: No Symptoms Reported Past Ecvvaot-Enhdwm-Xyklma Hx Patient Social History Alcohol Use: Denies Use Recreational Drug Use: No Smoking Status: Current Everyday Smoker Type Used: Cigarettes 2nd Hand Smoke Exposure: Yes Recent Foreign Travel: No Contact w/Someone Who Travel: No Recent Infectious Disease Expo: No Recent Hopitalizations: No Physical Abuse: No Sexual Abuse: No Mistreated: No Fear: No Immunizations Up To Date Tetanus Booster (TDap): Unknown Date of Pneumonia Vaccine: Dec 24, 2014 Seasonal Allergies Seasonal Allergies: Yes (MILD) Past Medical History Surgeries: Yes (RIGHT CARPAL TUNNEL RELEASE; COLONOSCOPY AND RIGHT COLON RESECTION FOR POLYPS/TUBULAR ADENOMA OF CECUM 04/[address] 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 Did You Recieve Any Treatments: Yes What Type of Treatment Did You: Surgical Intervention Psychosocial: No Integumentary: No Blood Disorders: No Adverse Reaction/Blood Tranf: No (N/A) Family Medical History Alcoholism Alzheimer's disease Arthritis Cardiovascular disease Cataracts Completed stroke Coronary thrombosis Deafness or hearing loss Dementia Dysphasia Hypercholesterolemia Hypertension Myocardial infarction Parkinson's disease Psychosocial problem Respiratory disorder Severe allergy Thyroid disease Visual disorder Heart Disease Physical Exam Vital Signs Vital Signs - First Documented 10/08/18 20:34 Temp 98.3 Pulse 83 Resp 20 B/P (MAP) 144/83 (103) Pulse Ox 99 Capillary Refill : Less Than 3 Seconds Height/Weight/BMI Height: 5'4.00" Weight: 135lbs. 0oz. 61.551403ei; 23.3 BMI Method:Stated General Appearance: WD/WN, no apparent distress Neck: normal inspection Respiratory: normal breath sounds, no respiratory distress, no accessory muscle use Cardiovascular: regular rate, rhythm, no murmur Gastrointestinal: normal bowel sounds, soft, no organomegaly, no pulsatile mass; No distended, No guarding, No rebound; tenderness (EPIGASTRIC); No hernia, No mass Rectal: normal rectal tone, heme negative stool; No blood streaked stool; hemorrhoids (MILD NON-INFLAMED, NON-TENDER EXTERNAL HEMORRHOIDS); No mass, No tenderness; other (NORMAL EXAM, NON-TENDER, NORMAL SOFT BROWN STOOL --NO BLOOD NOTED. 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 ) Progress/Results/Core Measures Results/Orders Lab Results Laboratory Tests Test 10/08/18 20:56 10/08/18 21:04 Range/Units White Blood Count 5.0 4.3-11.0 10^3/uL Red Blood Count 3.93 L 4.35-5.85 10^6/uL Hemoglobin 11.8 11.5-16.0 G/DL Hematocrit 35 35-52 % Mean Corpuscular Volume 89 80-99 FL Mean Corpuscular Hemoglobin 30 25-34 PG Mean Corpuscular Hemoglobin Concent 34 32-36 G/DL Red Cell Distribution Width 12.4 10.0-14.5 % Platelet Count 180 130-400 10^3/uL Mean Platelet Volume 9.6 7.4-10.4 FL Neutrophils (%) (Auto) 57 42-75 % Lymphocytes (%) (Auto) 29 12-44 % Monocytes (%) (Auto) 7 0-12 % Eosinophils (%) (Auto) 7 0-10 % Basophils (%) (Auto) 0 0-10 % Neutrophils # (Auto) 2.8 1.8-7.8 X 10^3 Lymphocytes # (Auto) 1.4 1.0-4.0 X 10^3 Monocytes # (Auto) 0.4 0.0-1.0 X 10^3 Eosinophils # (Auto) 0.3 0.0-0.3 10^3/uL Basophils # (Auto) 0.0 0.0-0.1 10^3/uL Prothrombin Time 12.9 12.2-14.7 SEC INR Comment 0.9 0.8-1.4 Activated Partial Thromboplast Time 30 24-35 SEC Sodium Level 141 135-145 MMOL/L Potassium Level 3.6 3.6-5.0 MMOL/L Chloride Level 106 98-107 MMOL/L Carbon Dioxide Level 23 21-32 MMOL/L Anion Gap 12 5-14 MMOL/L Blood Urea Nitrogen 13 7-18 MG/DL Creatinine 1.02 0.60-1.30 MG/DL Estimat Glomerular Filtration Rate 56 BUN/Creatinine Ratio 13 Glucose Level 104 70-105 MG/DL Calcium Level 9.9 8.5-10.1 MG/DL Corrected Calcium 9.5 8.5-10.1 MG/DL Total Bilirubin 0.5 0.1-1.0 MG/DL Aspartate Amino Transf (AST/SGOT) 19 5-34 U/L Alanine Aminotransferase (ALT/SGPT) 15 0-55 U/L Alkaline Phosphatase 78 40-136 U/L Total Protein 7.4 6.4-8.2 GM/DL Albumin 4.5 3.2-4.5 GM/DL Urine Color YELLOW Urine Clarity CLEAR Urine pH 5 5-9 Urine Specific [place] 1.020 1.016-1.022 Urine Protein NEGATIVE NEGATIVE Urine Glucose (UA) NEGATIVE NEGATIVE Urine Ketones NEGATIVE NEGATIVE Urine Nitrite NEGATIVE NEGATIVE Urine Bilirubin NEGATIVE NEGATIVE Urine Urobilinogen NORMAL NORMAL MG/DL Urine Leukocyte Esterase 2+ H NEGATIVE Urine RBC (Auto) 3+ H NEGATIVE Urine RBC 0-2 /HPF Urine WBC 0-2 /HPF Urine Squamous Epithelial Cells 2-5 /HPF Urine Crystals NONE /LPF Urine Bacteria TRACE /HPF Urine Casts NONE /LPF Urine Mucus NEGATIVE /LPF Urine Culture Indicated NO My Orders Orders - JESSICA IBARRA DO Ed Iv/Invasive Line Start (10/08/18 21:01) Cbc With Automated Diff (10/08/18 21:01) Comprehensive Metabolic Panel (10/08/18 21:01) Protime With Inr (10/08/18 21:01) Partial Thromboplastin Time (10/08/18 21:01) Ua Culture If Indicated (10/08/18 21:01) Ed Iv/Invasive Line Start (10/08/18 21:01) Ns Iv 1000 Ml (Sodium Chloride 0.9%) (10/08/18 21:01) Ct Abdomen/Pelvis W (10/08/18 21:25) Acute Abd Series (10/08/18 21:25) Levofloxacin Tablet (Levaquin Tablet) (10/08/18 22:45) Metronidazole Tablet (Flagyl Tablet) (10/08/18 22:45) Methylprednisolone Sod Succ (Solu-Medrol (10/08/18 23:00) Medications Given in ED Current Medications Medications Dose Ordered Sig/Mirta Route Start Time Stop Time Status Last Admin Dose Admin Levofloxacin 500 mg ONCE ONCE PO 10/08/18 22:45 10/08/18 22:46 DC 10/08/18 22:48 500 MG Metronidazole 500 mg ONCE ONCE PO 10/08/18 22:45 10/08/18 22:46 DC 10/08/18 22:48 500 MG Sodium Chloride 1,000 ml @ 0 mls/hr Q0M ONCE IV 10/08/18 21:01 10/08/18 21:03 DC 10/08/18 21:11 0 MLS/HR Vital Signs/I&O 10/08/18 10/08/18 20:34 22:56 Temp 98.3 98.3 Pulse 83 83 Resp 20 20 B/P (MAP) 144/83 (103) 144/83 (103) Pulse Ox 99 99 10/09/18 00:00 Intake Total 1000 ml Balance 1000 ml Blood Pressure Mean: 103 Progress Progress Note : Progress Note NO GI SYMPTOMS AND NO RECTAL BLEEDING OR ANY STOOLS DURING ER STAY AT DISMISSAL, PT WOULD ALSO LIKE A RASH ON HER ARMS AND LEGS CHECKED ALSO--ITCHES HAS BEEN PRESENT FOR A COUPLE OF DAYS--"POSSIBLE POISON ELICEO" WANTS A "SHOT" FOR IT Diagnostic Imaging Comments ABDOMEN XRAYS--NO ACUTE PROCESS, PENDING RADIOLOGIST REVIEW CT ABDOMEN/PELVIS--POST OP CHANGES TO COLON, MILD DIFFUSE COLITIS WITH POSSIBLE ENHANCEMENT OF RECTAL WALL--PER [facility] VIA FAX AT [phone] Departure Communication (Admissions) 1632--SPOKE WITH DR. SEPULVEDA--HE ADVISES TO TREAT WITH CIPRO + FLAGYL FOR 10 DAYS AND HE WILL SEE PT IN 2 WEEKS FOR FOLLOW UP, AND WILL DO OUTPATIENT COLONOSCOPY. PT IS TO FOLLOW UP WITH HIM OR DR. STOUT IF SYMPTOMS WORSEN BEFORE THAT TIME. PT IS AGREEABLE TO THIS PLAN Impression Primary Impression: Bloody stools Additional Impressions: Colitis Contact dermatitis Disposition: HOME, SELF-CARE Condition: Stable Departure-Patient Inst. Referrals: ALEX SEPULVEDA RICHARD A DO (PCP/Family) Primary Care Physician Patient Instructions: Bloody Stools, Adult (DC), Colitis (DC) Add. Discharge Instructions: CLEAR LIQUIDS--WATER, BROTH, JELLO, GATORADE WHEN YOUR STOOLS ARE STARTING TO CLEAR AND YOU NO LONGER HAVE PAIN, ADD BRATS DIET TO CLEAR LIQUIDS--BANANAS, RICE, APPLESAUCE, TOAST, SALTINES FOLLOW UP WITH DR. SEPULVEDA IN 2 WEEKS, OR SOONER IF SYMPTOMS WORSEN All discharge instructions reviewed with patient and/or family. Voiced understanding. Scripts Lactobacillus Acidophilus (Acidophilus) 1 Each Capsule 2 EACH PO QID, #80 CAP Prov: JESSICA IBARRA DO 10/08/18 Metronidazole (Flagyl) 500 Mg Tablet 500 MG PO QID for FOR INFECTION, #40 TAB Prov: JESSICA IBARRA DO 10/08/18 Ciprofloxacin HCl (Cipro) 500 Mg Tablet 500 MG PO BID, #20 TAB Prov: JESSICA IBARRA DO 10/08/18 JESSICA IBARRA DO Oct 08, 2018 21:12
[2018-10-08 21:15] LABS: BACTERIA,URINE TRACE /HPF; RBC,URINE 0-2 /HPF; WBC,URINE 0-2 /HPF
[2018-10-08 21:16] LABS: INR 0.9 (0.8-1.4); PROTHROMBIN TIME PATIENT 12.9 SEC (12.2-14.7)
[2018-10-08 21:23] LABS: ALBUMIN 4.5 GM/DL (3.2-4.5); BILIRUBIN,TOTAL 0.5 MG/DL (0.1-1.0); CALCIUM 9.9 MG/DL (8.5-10.1); CREATININE SERUM 1.02 MG/DL (0.60-1.30); POTASSIUM 3.6 MMOL/L (3.6-5.0); TOTAL PROTEIN 7.4 GM/DL (6.4-8.2)
--- NOTE | 2018-10-08 22:24 | Diagnostic Imaging Report ---
INDICATION: Rectal bleeding EXAMINATION: Abdomen series dated 10/08/2018 FINDINGS: Frontal chest with upright and supine imaging of the abdomen Chest is clear. No free air beneath the diaphragm. Scattered air and stool throughout the colon. Suture lines noted in the lower pelvis. IMPRESSION: 1. No acute process in the chest 2. Nonobstructive bowel gas pattern. Dictated by: Dictated on workstation # [id number]
[2018-10-08] MEDS ORDERED: METR500T PO (22:43)
[2018-10-08] MEDS ORDERED: CIPR-225 PO (22:43)
[2018-10-08] MEDS ORDERED: LACT1CAP8 PO (22:43)
[2018-10-08] MEDS ORDERED: LEVOFLOXACIN 500 MG TAB (LEVAQUIN) PO ONE (22:45)
[2018-10-08] MEDS ORDERED: metroNIDAZOLE 500 MG (FLAGYL) TAB PO ONE (22:45)
[2018-10-08 22:56] VITALS: BP 144/83
[2018-10-08] MEDS ORDERED: methylPREDNISolone 125 MG (Solu-MEDROL) VIAL IVP ONE (23:00)
--- NOTE | 2018-10-09 16:40 | Diagnostic Imaging Report ---
PROCEDURE: CT abdomen and pelvis with contrast. TECHNIQUE: Multiple contiguous axial images were obtained through the abdomen and pelvis after administration of intravenous contrast. Auto Exposure Controls were utilized during the CT exam to meet ALARA standards for radiation dose reduction. INDICATION: Rectal bleeding. COMPARISON: Comparison is made to study of 07/30/2012. FINDINGS: There is no evidence of focal hepatic or splenic lesion. The gallbladder is contracted which limits evaluation. There is no evidence of pericholecystic inflammation. No pancreatic, adrenal gland, or renal lesion is identified. There is no evidence of free fluid in the abdomen or pelvis. There are surgical changes at the level of the cecum. There is no evidence of bowel obstruction. No pathologic adenopathy is identified. Partially opacified urinary bladder is unremarkable. There is surgical suture material at the distal colon as well. IMPRESSION: No evidence of bowel obstruction or bowel lesion, although bowel is nonopacified which limits evaluation. The remainder of the abdomen and pelvis reveals no acute abnormality or significant adverse change. Dictated by: Dictated on workstation # [id number]
== END 2018-10-08 22:55 | disposition home or self-care (01) ==
LOC: EDUNIT# 20:30 → ER 20:32
DX: K52.9 Noninfective gastroenteritis and colitis, unspecified (principal); K92.1 Melena; L25.9 Unspecified contact dermatitis, unspecified cause; G43.909 Migraine, unspecified, not intractable, without status migrainosus; K21.9 Gastro-esophageal reflux disease without esophagitis; F17.210 Nicotine dependence, cigarettes, uncomplicated; Z90.710 Acquired absence of both cervix and uterus; Z86.010 Personal history of colon polyps; Z87.19 Personal history of other diseases of the digestive system; Z86.018 Personal history of other benign neoplasm
CPT/HCPCS: 36415; 74022; 74177; 80053; 81000; 85025; 85610; 85730; 96360; 96361

== ENCOUNTER 2018-10-10 21:27 | Emergency (ER) | payer BC ==
[~2018-10-10] VITALS: Ht 162.6 cm; Wt 61.7 kg
[~2018-10-10 21:27] MED LIST changes: +CIPR-225 PO; +LACT1CAP8 PO; +METR500T PO
--- NOTE | 2018-10-10 21:37 | NUR ---
DURING TRIAGE PT ASKED IF SHE WAS ALLERGIC TO MEDICATIONS. PT STATES "I DON'T TAKE A LOT OF MEDICATIONS." PT ASKED AGAIN IF SHE WAS ALLERGIC TO ANY MEDICATIONS AND PT STATES, "I JUST TOLD YOU I DON'T TAKE VERY MANY MEDICATIONS SO I WOULDN'T KNOW IF I'M ALLERGIC." PT VOICE BEGINNING TO RAISE AND TONE BECOMING AGGRESSIVE TO THIS TRUER PINION AND WHEEL/RN. 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 PT APOLOGIZED STATING, "I'M SORRY I'M SO GROUCHY I'M JUST UNCOMFORTABLE."
[2018-10-10] MEDS ORDERED: TRIAMCINOLONE ACET (KENALOG-40) 40 MG/ML 1 ML VIAL IM ONE (21:45)
[2018-10-10] MEDS ORDERED: DEXAMETHASONE 4 MG/ML SDV (DECADRON) IM ONE (21:45)
--- NOTE | 2018-10-10 21:46 | ED Integumentary General ---
General Chief Complaint: Skin/Wound Problems Stated Complaint: RASH Source: patient Exam Limitations: no limitations History of Present Illness Date Seen by Provider: Oct 10, 2018 Time Seen by Provider: 21:44 Initial Comments 58-year-old female who presents to the emergency room with complaints of poison marion rash to her thighs bilaterally. She reports she's been using topical hydrocortisone without relief. There does not appear to be a secondary infection around the rash. Timing/Duration: week Associated Symptoms: rash Allergies and Home Medications Allergies Coded Allergies: No Known Drug Allergies (Unverified , 04/30/18) Home Medications Ciprofloxacin HCl 500 Mg Tablet, 500 MG PO BID Prescribed by: JESSICA IBARRA on 10/08/182242 Docusate Sodium 100 Mg Capsule, 100 MG PO BID Prescribed by: ALEX SEPULVEDA on 05/05/18 112 Hydrocodone Bit/Acetaminophen 1 Tab Tab, 1-2 TAB PO Q6H PRN for PAIN-MODERATE Prescribed by: ALEX SEPULVEDA on 05/05/18 112 Lactobacillus Acidophilus 1 Each Capsule, 2 EACH PO QID Prescribed by: JESSICA IBARRA on 10/08/182242 Metronidazole 500 Mg Tablet, 500 MG PO QID Prescribed by: JESSICA IBARRA on 10/08/182242 Pantoprazole Sodium 40 Mg Tablet.dr, 40 MG PO DAILY, (Reported) Sulfamethoxazole/Trimethoprim 1 Each Tablet, 1 EACH PO BID Take your first 2 doses today, one now and one before bed. Prescribed by: AKASH ANN on 05/18/18 1606 Patient Home Medication List Home Medication List Reviewed: Yes Review of Systems Review of Systems Constitutional: see HPI; No chills, No fever Skin: see HPI, rash All Other Systems Reviewed Negative Unless Noted: Yes Past Flvlvlc-Rlfjnk-Kvauaa Hx Past Med/Social Hx: Reviewed Nursing Past Med/Soc Hx Patient Social History Type Used: Cigarettes 2nd Hand Smoke Exposure: Yes Recent Foreign Travel: No Contact w/Someone Who Travel: No Recent Hopitalizations: No Immunizations Up To Date Tetanus Booster (TDap): Unknown Date of Pneumonia Vaccine: Dec 24, 2014 Seasonal Allergies Seasonal Allergies: Yes (MILD) Past Medical History Surgeries: Yes Abdominal, Bowel Surgery, Hysterectomy, Orthopedic Respiratory: No Currently Using CPAP: No Currently Using BIPAP: No Cardiac: No Neurological: Yes Headaches /Migraines Reproductive Disorders: No 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 Sexually Transmitted Disease: No HIV/AIDS: No Genitourinary: No Gastrointestinal: Yes Gastroesophageal Reflux, Polyps, Hiatal Hernia Musculoskeletal: No Endocrine: No HEENT: Yes (GLASSES, DENTURES) Cataract Loss of Vision: Bilateral Hearing Impairment: Denies 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 Did You Recieve Any Treatments: Yes What Type of Treatment Did You: Surgical Intervention Psychosocial: No Integumentary: No Blood Disorders: No Adverse Reaction/Blood Tranf: No (N/A) Family Medical History Reviewed Nursing Family Hx Alcoholism Alzheimer's disease Arthritis Cardiovascular disease Cataracts Completed stroke Coronary thrombosis Deafness or hearing loss Dementia Dysphasia Hypercholesterolemia Hypertension Myocardial infarction Parkinson's disease Psychosocial problem Respiratory disorder Severe allergy Thyroid disease Visual disorder Heart Disease Physical Exam Vital Signs Capillary Refill : General Appearance: WD/WN, no apparent distress Cardiovascular: normal peripheral pulses, regular rate, rhythm, no edema, no gallop, no JVD, no murmur Respiratory: chest non-tender, lungs clear, normal breath sounds, no respiratory distress, no accessory muscle use Skin: normal color, warm/dry, rash Skin Problem Location: lower extremities (thighs bilaterally) Skin Problem Character: erythema, rash Departure Impression Primary Impression: Allergic contact dermatitis Disposition: 01 HOME, SELF-CARE Condition: Stable/Unchanged Departure-Patient Inst. Decision time for Depature: 21:45 Referrals: GILSON RIDDLE DO (PCP/Family) Primary Care Physician Patient Instructions: Poison [place], Poison [place], Poison [place] (DC) Add. Discharge Instructions: Continue use the topical hydrocortisone cream as needed. You may use oral Benadryl as needed for itching. Follow-up with your primary care provider within 1 week for recheck. Return back to the emergency room for worsening symptoms or concerns as needed. All discharge instructions reviewed with patient and/or family. Voiced understanding. KAMERON BAEZ Oct 10, 2018 21:46
[2018-10-10 22:07] VITALS: BP 130/78
--- OUTSIDE RECORDS SUMMARY | 2018-10-11 17:11 | XMS REPORT | Continuity of Care Document ---
Author Organization Unknown Address Unknown Allergies Active Description Code Type Severity Reaction Onset Reported/Identified Relationship to Patient Clinical Status Yes No Known Drug Allergies [id number] Drug Allergy Unknown N/A 04/30/2018 Medications There [...] V17.49 FAM HX CAD (DISEASE) 03/17/2013 QUYNH SAND CASTER, MIGDALIA R 305.1 TOBACCO ABUSE 03/17/2013 QUYNH SAND CASTER, MIGDALIA R 786.05 SHORTNESS OF BREATH 03/17/2013 QUYNH SAND CASTER, MIGDALIA R 786.50 CHEST PAIN 03/17/2013 QUYNH SAND CASTER, MIGDALIA R V17.49 FAM HX CAD (DISEASE) 03/17/2013 INGRAM DO, BROOKLYN K 305.1 TOBACCO ABUSE 03/17/2013 INGRAM DO, BROOKLYN K 786.05 SHORTNESS OF BREATH 03/17/2013 INGRAM DO, BROOKLYN K 786.50 CHEST PAIN 03/17/2013 INGRAM DO, BROOK[place]N K V17.49 FAM HX CAD (DISEASE) 03/17/2013 QUYNH TAMEZ MIGDALIA R 305.1 TOBACCO ABUSE 03/17/2013 QUYNH SAND CASTER, MIGDALIA R 786.05 SHORTNESS OF BREATH 03/17/2013 QUYNH SAND CASTER, MIGDALIA R 786.50 CHEST PAIN 03/17/2013 QUYNH TAMEZ MIGDALIA R V17.49 FAM HX CAD (DISEASE) 04/17/2013 ROSY CAMARA [facility], ALI FACP CCDS Ot 276.8 04/17/2013 ROSY CAMARA FAC, ALI FACP CCDS Ot 305.1 04/17/2013 ROSY CAMARA [facility], ALI FACP CCDS Ot 786.50 04/17/2013 ROSY CAMARA FAC, ALI FACP CCDS Ot V03.82 04/17/2013 ROSY CAMARA FAC, ALI FACP CCDS Ot V04.81 04/17/2013 ROSY CAMARA [facility], ALI FACP CCDS Ot V17.3 04/30/2013 VIVIAN BEAUCHAMP APRNINA 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 04/30/2013 INGRAM DO, BROOKLYN 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 04/30/2013 QUYNH TAMEZ MIGDALIA 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 11/19/2013 VIVIAN BEAUCHAMP APRNINA 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 05/04/2015 ROSY CAMARA [facility], ALI FACP CCDS Ot 786.50 05/04/2015 MIGDALIA BEAUCHAMP SAND CASTER Ot 793.11 05/12/2015 SUDARSHAN CAMARA, NEO Hernández Ot G56.01 CARPAL TUNNEL SYNDROME, RIGHT UPPER LIMB 05/12/2015 SUDARSHAN CAMARA, NEO Hernández Ot Z11.2 ENCOUNTER FOR SCREENING FOR OTHER BACTER 09/12/2016 ODALIS MAYS SAND CASTER Ot F17.210 NICOTINE DEPENDENCE, CIGARETTES, UNCOMPL 09/12/2016 ODALIS MAYS APRN Ot M94.0 CHONDROCOSTAL JUNCTION SYNDROME [TIETZE] 09/12/2016 ODALIS MAYS APRN Ot R07.9 CHEST PAIN, UNSPECIFIED 09/12/2016 ODALIS MAYS APRN Ot Z79.82 KENNEL MANAGER DOG TRACK (CURRENT) USE OF ASPIRIN 09/12/2016 ODALIS MAYS [...] UNSPECIFIED 09/14/2016 ODALIS MAYS APRN Ot Z79.82 KENNEL MANAGER DOG TRACK (CURRENT) USE OF ASPIRIN 09/14/2016 ODALIS MAYS [...] K64.8 OTHER HEMORRHOIDS 04/08/2018 MALIK SEPULVEDA DOTT Rick Ot R13.10 DYSPHAGIA, UNSPECIFIED 04/30/2018 MALIK SEPULVEDA [...] SPECIFIED POSTPROCEDURAL STATES 06/07/2018 Ot E83.51 HYPOCALCEMIA 10/08/2018 Ot E83.51 HYPOCALCEMIA Procedures Code Description [place] [address] EKG, TRACING (IN-HOUSE) 03/17/2013 40384 OXIMETRY 03/17/2013 Cardiolog Joey Pena 03/20/2013 15965 ECHO 2D 04/30/2013 31592 XRAY CHEST 2 VIEW 11/06/2013 00902 EKG, TRACING 11/06/2013 17147 LIPID PANEL 11/06/2013 63228 MAGNESIUM 11/06/2013 64331 CBC 11/06/2013 92618 CMP 11/06/2013 1205571 GFR CALC (RESULT ONLY) 11/06/2013 10848 TSH 11/06/2013 14420 MAMMOGRAM, SCREENING 11/12/[address] CHEST W/DYE 11/19/2013 96223 NUCLEAR STRESS TESTING 11/19/2013 90816 OXIMETRY 11/19/2013 [id number] RESECTION OF RIGHT LARGE INTESTINE, OPEN 05/02/2018 [...] ABO+Rh group OP NRG Transfusion band number [id number] NRG Blood group antibody screen NEGATIVE NRG [...] plasma calcium measurement (mass/volume) 9.2 mg/dL 8.5-10.1 Complete blood count (CBC) with automated white blood cell (WBC) differential - 10/08/18 20:56 Blood leukocytes automated count (number/volume) 5.0 10*3/uL 4.3-11.0 Blood erythrocytes automated count (number/volume) 3.93 10*6/uL 4.35-5.85 Venous blood hemoglobin measurement (mass/volume) 11.8 g/dL 11.5-16.0 Blood hematocrit (volume fraction) 35 % 35-52 Automated erythrocyte mean corpuscular volume 89 [foz_us] 80-99 Automated erythrocyte mean corpuscular hemoglobin (mass per erythrocyte) 30 pg 25-34 Automated erythrocyte mean corpuscular hemoglobin concentration measurement (mass/volume) 34 g/dL 32-36 Automated erythrocyte distribution width ratio 12.4 % 10.0- 14.5 Automated blood platelet count (count/volume) 180 10*3/uL 130-400 Automated blood platelet mean volume measurement 9.6 [[facility]_us] 7.4-10.4 Automated blood neutrophils/100 leukocytes 57 % 42-75 Automated blood lymphocytes/100 leukocytes 29 % 12-44 Blood monocytes/100 leukocytes 7 % 0-12 Automated blood eosinophils/100 leukocytes 7 % 0-10 Automated blood basophils/100 leukocytes 0 % 0-10 Blood neutrophils automated count (number/volume) 2.8 10*3 1.8-7.8 Blood lymphocytes automated count (number/volume) 1.4 10*3 1.0-4.0 Blood monocytes automated count (number/volume) 0.4 10*3 0.0- 1.0 Automated eosinophil count 0.3 10*3/uL 0.0-0.3 Automated blood basophil count (count/volume) 0.0 10*3/uL 0.0-0.1 PT panel in platelet poor plasma by coagulation assay - 10/08/18 20:56 Prothrombin time (PT) in platelet poor plasma by coagulation assay 12.9 s 12.2-14.7 INR in platelet poor plasma or blood by coagulation assay 0.9 0.8-1.4 Activated partial thromboplastin time (aPTT) in platelet poor plasma bycoagulation assay - 10/08/18 20:56 Activated partial thromboplastin time (aPTT) in platelet poor plasma bycoagulation assay 30 s 24-35 Comprehensive metabolic panel - 10/08/18 20:56 Serum or plasma sodium measurement (moles/volume) 141 mmol/L 135-145 Serum or plasma potassium measurement (moles/volume) 3.6 mmol/L 3.6-5.0 Serum or plasma chloride measurement (moles/volume) 106 mmol/L 98-107 Carbon dioxide 23 mmol/L 21-32 Serum or plasma anion gap determination (moles/volume) 12 mmol/L 5-14 Serum or plasma urea nitrogen [...] or plasma alkaline phosphatase measurement (enzymatic activity/volume) 78 U/L 40-136 Serum or plasma aspartate aminotransferase measurement (enzymatic activity/volume) 19 U/L 5-34 Serum or plasma alanine aminotransferase measurement (enzymatic activity/volume) 15 U/L 0-55 Serum or plasma protein measurement (mass/volume) 7.4 g/dL 6.4-8.2 Serum or plasma albumin measurement (mass/volume) 4.5 g/dL 3.2-4.5 CALCIUM CORRECTED 9.5 mg/dL 8.5-10.1 Complete urinalysis with reflex to culture - 10/08/18 21:04 Urine color determination YELLOW NRG Urine clarity determination CLEAR NRG Urine pH measurement by test strip 5 5-9 Specific gravity of urine by test strip 1.020 1.016-1.022 Urine protein assay by test strip, semi-quantitative NEGATIVE NEGATIVE Urine glucose detection by automated test strip NEGATIVE NEGATIVE Erythrocytes detection in urine sediment by light microscopy 3+ NEGATIVE Urine ketones detection by automated test strip NEGATIVE NEGATIVE Urine nitrite detection by test strip NEGATIVE NEGATIVE Urine total bilirubin detection by test strip NEGATIVE NEGATIVE Urine urobilinogen measurement by automated test strip (mass/volume) NORMAL NORMAL Urine leukocyte esterase detection by dipstick 2+ NEGATIVE Automated urine sediment erythrocyte count by microscopy (number/high power field) [HPF] NRG Automated urine sediment leukocyte count by microscopy (number/high power field) [HPF] NRG Bacteria detection in urine sediment by light microscopy TRACE NRG Squamous epithelial cells detection in urine sediment by light microscopy 2-5 NRG Crystals detection in urine sediment by light microscopy NONE NRG Casts detection in urine sediment by light microscopy NONE NRG Mucus detection in urine sediment by light microscopy NEGATIVE NRG Complete urinalysis with reflex to culture NO NRG Encounters ACCT No. Visit Date/Time Discharge Status Pt. Type Provider Facility Loc./Unit Complaint [id number] 11/19/2013 08:24:00 11/19/2013 23:59:59 CLS Outpatient QUYNH TAMEZ MIGDALIA Monahan [id number] 11/12/2013 08:21:00 11/12/2013 23:59:59 CLS Outpatient BROOKLYN INGRAM DO [id number] 04/30/2013 08:52:00 04/30/2013 23:59:59 CLS Outpatient MIGDALIA BEAUCHAMP APRN Hero [id number] 03/17/2013 14:48:00 03/17/2013 23:59:59 CLS Outpatient BROOKLYN INGRAM DO [id number] 10/08/2018 20:32:00 10/08/2018 22:55:00 DIS Emergency STACEY DO JESSICA Rob [facility] ER RECTAL BLEEDING [id number] 05/18/2018 14:58:00 05/18/2018 16:00:00 DIS Emergency JAREK CAMARA, AKASH Rees [facility] ER SORE AND RED AROUND SURGERY SCARS, 2 WEEKS POST OP [id number] 05/02/2018 08:06:00 05/05/2018 13:15:00 DIS Inpatient ALEX SEPULVEDA DO [facility] 4TH TUBULAR ADENOMA [id number] 04/30/2018 10:48:00 04/30/2018 11:57:00 DIS Outpatient ALEX SEPULVEDA DO [facility] PREOP LAPAROSCOPIC HAND-ASSISTED RIGHT COLON RESECTION [id number] 04/02/2018 09:06:00 04/02/2018 10:50:00 DIS Outpatient ALEX SEPULVEDA DO [facility] ENDO DYSPHAGIA/BLOOD IN STOOL [id number] 03/27/2018 05:56:00 03/27/2018 13:28:00 DIS Outpatient ALEX SEPULVEDA DO [facility] PREOP COLONOSCOPY/EGD [id number] 10/01/2017 19:43:00 10/01/2017 20:33:00 DIS Emergency ODALIS MAYS APRN [facility] ER POSS REACTION TO NEW MED [id number] 09/12/2016 11:23:00 09/12/2016 12:35:00 DIS Emergency ODALIS MAYS APRN [facility] ER CHEST PAIN [id number] 05/12/2015 08:04:00 05/12/2015 11:15:00 DIS Outpatient NEO HEATON MD [facility] SDC RIGHT CARPEL TUNNEL SYNDROME [id number] 05/06/2015 11:08:00 05/06/2015 23:59:59 CLS Outpatient NEO HEATON MD [facility] PREOP [id number] 11/21/2013 12:18:00 11/21/2013 23:59:59 CLS Outpatient MIGDALIA BEAUCHAMP SAND CASTER [facility] RAD [id number] 04/25/2013 09:07:00 04/25/2013 23:59:59 CLS Outpatient JOEY PENA MD, FACC, FACP CCDS [facility] CARD [id number] 04/16/2013 20:30:00 04/17/2013 14:20:00 DIS Inpatient JOEY PENA MD, FACC, FACP CCDS [facility] CSD [id number] 07/30/2012 09:30:00 07/30/2012 14:30:00 DIS Inpatient SAIDA ALEXANDER MD [facility] SURGICAL [id number] 07/27/2012 10:33:00 07/27/2012 23:59:59 CLS Outpatient [id number] 06/05/2018 10:56:00 Document Registration [id number] 05/04/2015 09:35:00 Document Registration [id number] 05/04/2015 09:35:00 Document Registration [id number] 03/12/2012 13:26:00 Document Registration [id number] 10/09/2011 21:43:00 Document Registration [id number] 12/18/2009 08:37:00 Document Registration
== END 2018-10-10 22:08 | disposition home or self-care (01) ==
LOC: EDUNIT# 21:27 → ER 21:28
DX: L23.9 Allergic contact dermatitis, unspecified cause (principal); G43.909 Migraine, unspecified, not intractable, without status migrainosus; K21.9 Gastro-esophageal reflux disease without esophagitis; Z86.010 Personal history of colon polyps; Z86.018 Personal history of other benign neoplasm; Z87.19 Personal history of other diseases of the digestive system; Z77.22 Contact with and (suspected) exposure to environmental tobacco smoke (acute) (chronic); Z90.710 Acquired absence of both cervix and uterus; Z82.49 Family history of ischemic heart disease and other diseases of the circulatory system
CPT/HCPCS: 96372; 99284

== ENCOUNTER 2018-12-16 11:34 | Emergency (ER) | payer BC ==
[~2018-12-16] VITALS: Ht 162 cm; Wt 59.5 kg
[2018-12-16 12:01] LABS: BILIRUBIN,URINE NEGATIVE (NEGATIVE); CLARITY,URINE CLEAR; COLOR,URINE YELLOW; GLUCOSE, URINE (UA) NEGATIVE (NEGATIVE); KETONES,URINE NEGATIVE (NEGATIVE); LEUKOCYTE ESTERASE ,URINE NEGATIVE (NEGATIVE); NITRITE,URINE NEGATIVE (NEGATIVE); PH,URINE 6.5 (5-9); PROTEIN,URINE NEGATIVE (NEGATIVE); UROBILINOGEN,URINE NORMAL (NORMAL)
[2018-12-16 12:14] LABS: BACTERIA,URINE NEGATIVE /HPF
[2018-12-16] MEDS ORDERED: KETOROLAC 60 MG/2 ML VIAL IM ONE (12:15)
[2018-12-16] MEDS ORDERED: ORPHENADRINE 60 MG/2 ML (NORFLEX) AMP IM ONE (12:15)
--- NOTE | 2018-12-16 12:18 | ED Back Pain ---
General Chief Complaint: Back Problems Stated Complaint: LOWER BACK PAIN Nursing Triage Note: PT PRESENT TO ED WITH COMPLAINTS OF LOW BACK PAIN/FLANK PAIN THAT RADIATES DOWN TO HER PELVIS STARTING LAST EVENING. PT DENIES ANY KNOWN INJURY. Nursing Sepsis Screen: No Definite Risk Source of Information: Patient Exam Limitations: No Limitations History of Present Illness Date Seen by Provider: Dec 16, 2018 Time Seen by Provider: 11:50 Initial Comments 58-year-old female who presents to the emergency room with complaints of low back pain that radiates to her flanks bilaterally and down into her pelvis that started last night before she went to bed. She reports that she has history of urinary tract ejection is unsure if that is the cause or that she strained her back getting out of bed. She denies loss of bowel or bladder or saddle paresthesia. Location: Lumbar Spine Associated Symptoms: No muscle spasms, No numbness in legs/feet, No tingling in legs/feet, No loss of bladder control, No loss of bowel control Allergies and Home Medications Allergies Coded Allergies: No Known Drug Allergies (Unverified , 04/30/18) Home Medications Ciprofloxacin HCl 500 Mg Tablet, 500 MG PO BID Prescribed by: JESSICA IBARAR on 10/08/182242 Docusate Sodium 100 Mg Capsule, 100 MG PO BID Prescribed by: ALEX SEPULVEDA on 05/05/18 112 Hydrocodone Bit/Acetaminophen 1 Tab Tab, 1-2 TAB PO Q6H PRN for PAIN-MODERATE Prescribed by: ALEX SEPULVEDA on 05/05/18 112 Lactobacillus Acidophilus 1 Each Capsule, 2 EACH PO QID Prescribed by: JESSICA IBARRA on 10/08/182242 Metronidazole 500 Mg Tablet, 500 MG PO QID Prescribed by: JESSICA IBARRA on 10/08/182242 Pantoprazole Sodium 40 Mg Tablet.dr, 40 MG PO DAILY, (Reported) Sulfamethoxazole/Trimethoprim 1 Each Tablet, 1 EACH PO BID Take your first 2 doses today, one now and one before bed. Prescribed by: AKASH ANN on 05/18/18 1606 Patient Home Medication List Home Medication List Reviewed: Yes Review of Systems Constitutional: see HPI; No chills, No fever Musculoskeletal: see HPI, back pain All Other Systems Reviewed Negative Unless Noted: Yes Past Gldnvij-Ltsmwq-Pzigzn Hx Past Med/Social Hx: Reviewed Nursing Past Med/Soc Hx Patient Social History Alcohol Use: Denies Use Recreational Drug Use: No Type Used: Cigarettes Former Smoker, Quit: May 02, 2018 2nd Hand Smoke Exposure: Yes Recent Foreign Travel: No Contact w/Someone Who Travel: No Recent Infectious Disease Expo: No Recent Hopitalizations: No Physical Abuse: No Sexual Abuse: No Mistreated: No Fear: No Immunizations Up To Date Tetanus Booster (TDap): Unknown Date of Pneumonia Vaccine: Dec 24, 2014 Seasonal Allergies Seasonal Allergies: Yes (MILD) Past Medical History Surgeries: Yes (bowel resection) Abdominal, Bowel Surgery, Hysterectomy, Orthopedic Respiratory: No Currently Using CPAP: No Currently Using BIPAP: No Cardiac: No Neurological: Yes Headaches /Migraines Reproductive Disorders: No 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 Sexually Transmitted Disease: No HIV/AIDS: No Genitourinary: No Gastrointestinal: Yes Gastroesophageal Reflux, Polyps, Hiatal Hernia Musculoskeletal: No Endocrine: No HEENT: Yes (GLASSES, DENTURES) Cataract Loss of Vision: Bilateral Hearing Impairment: Denies 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 Did You Recieve Any Treatments: Yes What Type of Treatment Did You: Surgical Intervention Psychosocial: No Integumentary: No Blood Disorders: No Adverse Reaction/Blood Tranf: No (N/A) Family Medical History Reviewed Nursing Family Hx Alcoholism Alzheimer's disease Arthritis Cardiovascular disease Cataracts Completed stroke Coronary thrombosis Deafness or hearing loss Dementia Dysphasia Hypercholesterolemia Hypertension Myocardial infarction Parkinson's disease Psychosocial problem Respiratory disorder Severe allergy Thyroid disease Visual disorder Heart Disease Physical Exam Vital Signs Vital Signs - First Documented 12/16/18 11:48 Temp 36.8 Pulse 79 Resp 18 B/P (MAP) 130/78 (95) Pulse Ox 100 Capillary Refill : Less Than 3 Seconds Height, Weight, BMI Height: 5'4.00" Weight: 136lbs. 0oz. 61.618050sq; 22.00 BMI Method:Stated General Appearance: WD/WN Neck: Full Range of Motion, Normal Inspection, Non Tender, Supple Cardiovascular: Regular Rate, Rhythm, No Edema, No Gallop, No JVD, No Murmur, Normal Peripheral Pulses Respiratory: Chest Non Tender, Lungs Clear, Normal Breath Sounds, No Accessory Muscle Use, No Respiratory Distress Back: Normal Inspection, No CVA Tenderness, Vertebral Tenderness (lumbar vertebral tenderness) Neurologic/Psychiatric: Alert, Oriented x3, Normal Mood/Affect Skin: Normal Color, Warm/Dry Progress/Results/Core Measures Results/Orders Lab Results Laboratory Tests Test 12/16/18 11:55 Range/Units Urine Color YELLOW Urine Clarity CLEAR Urine pH 6.5 5-9 Urine Specific Lynn 1.010 L 1.016-1.022 Urine Protein NEGATIVE NEGATIVE Urine Glucose (UA) NEGATIVE NEGATIVE Urine Ketones NEGATIVE NEGATIVE Urine Nitrite NEGATIVE NEGATIVE Urine Bilirubin NEGATIVE NEGATIVE Urine Urobilinogen NORMAL NORMAL MG/DL Urine Leukocyte Esterase NEGATIVE NEGATIVE Urine RBC (Auto) NEGATIVE NEGATIVE Urine RBC NONE /HPF Urine WBC NONE /HPF Urine Squamous Epithelial Cells NONE /HPF Urine Crystals NONE /LPF Urine Bacteria NEGATIVE /HPF Urine Casts NONE /LPF Urine Mucus NEGATIVE /LPF Urine Culture Indicated NO My Orders Orders - KAMERON BAEZ Ua Culture If Indicated (12/16/18 11:50) Ketorolac Injection (Toradol Injection) (12/16/18 12:15) Orphenadrine Injection (Norflex Injectio (12/16/18 12:15) Medications Given in ED Current Medications Medications Dose Ordered Sig/Mirta Route Start Time Stop Time Status Last Admin Dose Admin Ketorolac Tromethamine 60 mg ONCE ONCE IM 12/16/18 12:15 12/16/18 12:16 DC 12/16/18 12:20 60 MG Orphenadrine Citrate 60 mg ONCE ONCE IM 12/16/18 12:15 12/16/18 12:16 DC 12/16/18 12:20 60 MG Vital Signs/I&O 12/16/18 11:48 Temp 36.8 Pulse 79 Resp 18 B/P (MAP) 130/78 (95) Pulse Ox 100 Blood Pressure Mean: 95 Departure Impression Primary Impression: Back strain Qualified Codes: S39.012A - Strain of muscle, fascia and tendon of lower back, initial encounter Disposition: HOME, SELF-CARE Condition: Stable/Unchanged Departure-Patient Inst. Decision time for Depature: 12:51 Referrals: GILSON RIDDLE DO (PCP/Family) Primary Care Physician Patient Instructions: Lumbar Muscle Strain (DC) Add. Discharge Instructions: Rest, ibuprofen and Tylenol as directed by the bottle for pain relief. You may alternate ice and heat at 20 minute intervals. Follow-up with your primary care provider within 1 week for recheck. Return back to the emergency room for worsening symptoms or concerns as needed. All discharge instructions reviewed with patient and/or family. Voiced understanding. KAMERON BAEZ Dec 16, 2018 12:18
[2018-12-16 13:00] VITALS: BP 123/80
== END 2018-12-16 13:00 | disposition home or self-care (01) ==
LOC: EDUNIT# 11:34 → ER 11:35
DX: S39.012A Strain of muscle, fascia and tendon of lower back, initial encounter (principal); G43.909 Migraine, unspecified, not intractable, without status migrainosus; K21.9 Gastro-esophageal reflux disease without esophagitis; Z85.038 Personal history of other malignant neoplasm of large intestine; Z77.22 Contact with and (suspected) exposure to environmental tobacco smoke (acute) (chronic); Z87.891 Personal history of nicotine dependence; Z90.710 Acquired absence of both cervix and uterus; Z82.49 Family history of ischemic heart disease and other diseases of the circulatory system; X58.XXXA Exposure to other specified factors, initial encounter
CPT/HCPCS: 81000; 99284

== ENCOUNTER 2019-03-25 05:36 | Outpatient (CLI) | payer BC ==
[~2019-03-25] VITALS: Ht 165.1 cm; Wt 61.4 kg
== END 2019-03-25 11:16 | disposition home or self-care (01) ==
LOC: PREOP 05:36
PROVIDERS: ATTEND Surgery
DX: Z01.818 Encounter for other preprocedural examination (principal)

== ENCOUNTER 2023-01-09 05:31 | Outpatient (CLI) | payer OTHER ==
[~2023-01-09] VITALS: Ht 162.6 cm; Wt 61.4 kg
[~2023-01-09 05:31] MED LIST changes: -SULF1TAB35 PO; +SULF1TAB38 PO
== END 2023-01-09 09:07 | disposition home or self-care (01) ==
LOC: PREOP 05:31
PROVIDERS: ATTEND Specialist
DX: Z01.818 Encounter for other preprocedural examination (principal)

== ENCOUNTER 2023-01-12 07:57 | Day surgery (SDC) | payer OTHER ==
[~2023-01-12] VITALS: Ht 162.6 cm; Wt 61.4 kg
[2023-01-12] MEDS ORDERED: POVIDONE IODINE OPHTH SOLN 5% 30 ML OP ONE (08:30)
[2023-01-12] MEDS ORDERED: TIMOLOL 0.5% (CATARACTS) 0.3 ML BTL OU PRN (08:30)
[2023-01-12] MEDS ORDERED: MOXIFLOXACIN OPHTH SOLN 5 MG/ML 0.5 ML SYRINGE OP ONE (08:30)
[2023-01-12] MEDS ORDERED: LIDOCAINE PF 1% 2 ML VIAL IR PRN (08:30)
[2023-01-12] MEDS: TETRACAINE 0.5% OPHTH SOLN 4 ML BTL (SINGLE DOSE ONLY) OU PRN ×4 (08:40→09:01)
[2023-01-12] MEDS: TROPICAMIDE 1% OPH SOLN (MYDRIACYL) 15 ML BTL OP SCH ×3 (08:48→09:01)
[2023-01-12] MEDS: PHENYLEPHRINE 10% OPHTH SOLN 5 ML BTL OU SCH ×3 (08:48→09:01)
[2023-01-12 08:52] VITALS: BP 147/81
--- NOTE | 2023-01-12 09:19 | Ophthalmologist Pre-Op Note ---
Pre-Operative Progress Note H&P Reviewed The H&P was reviewed, patient examined and no changes noted. Date H&P Reviewed: Jan 12, 2023 Time H&P Reviewed: 09:19 Pre-Op Dx Cataract, Right Eye ELODIA CARDENAS MD Jan 12, 2023 09:19
--- NOTE | 2023-01-12 09:39 | Ophthalmology Operative Report ---
Cataract removal/placement IOL PREOPERATIVE DIAGNOSIS: Cataract Right Eye POSTOPERATIVE DIAGNOSIS: Cataract Right Eye PROCEDURE: Cataract removal and placement of posterior chamber implant, right eye SURGEON: Alex Cardenas ANESTHESIA: Topical with sedation COMPLICATIONS: None ESTIMATED BLOOD LOSS: Minimal DESCRIPTION OF PROCEDURE: After proper informed consent was obtained, the patient, a 62 female, was taken to the Operating Room and the right eye was anesthetized with tetracaine. The right eye was then prepped and draped in the usual manner. A wire lid speculum was placed. A paracentesis was made at the left hand position. Preservative free lidocaine was injected into the anterior chamber followed by viscoelastic. A clear corneal incision was made in the temporal position. A capsulorrhexis was preformed and the central nuclear and cortical material were removed. The posterior capsule was polished and Jamie 11.5 CNA0T0 IOL was placed into the capsular bag. The residual viscoelastic was aspirated and balanced saline solution was injected into the anterior chamber. Moxifloxacin was injected into the anterior chamber. The wound was checked and found to be water tight. The patient tolerated the procedure well without complications. ALEX CARDENAS MD Jan 12, 2023 09:39
[2023-01-12 09:50] VITALS: BP 140/82
--- NOTE | 2023-01-12 12:13 | Anesthesia-General Post-Op ---
MAC Patient Condition Mental Status/LOC: Same as Preop Cardiovascular: Satisfactory Nausea/Vomiting: Absent Respiratory: Satisfactory Pain: Controlled Complications: Absent Post Op Complications Complications None Follow Up Care/Instructions Patient Instructions None needed. Anesthesiology Discharge Order Discharge Order Patient is doing well, no complaints, stable vital signs, no apparent adverse anesthesia problems. No complications reported per nursing. WARREN FOREMAN CRNA Jan 12, 2023 12:13
== END 2023-01-12 09:50 | disposition home or self-care (01) ==
LOC: SDC 07:57
PROVIDERS: ATTEND Specialist
DX: H25.9 Unspecified age-related cataract (principal); F17.200 Nicotine dependence, unspecified, uncomplicated
CPT/HCPCS: 66984; V2632

== ENCOUNTER 2023-01-18 08:00 | Outpatient (CLI) | payer OTHER ==
[~2023-01-18] VITALS: Ht 162 cm; Wt 61.4 kg
== END 2023-01-18 15:15 | disposition home or self-care (01) ==
LOC: PREOP 08:00
PROVIDERS: ATTEND Specialist
DX: Z01.818 Encounter for other preprocedural examination (principal)

== ENCOUNTER 2023-01-26 07:15 | Day surgery (SDC) | payer OTHER ==
[~2023-01-26] VITALS: Ht 162 cm; Wt 61.4 kg
[2023-01-26] MEDS ORDERED: TIMOLOL 0.5% (CATARACTS) 0.3 ML BTL OU PRN (07:30)
[2023-01-26] MEDS ORDERED: LIDOCAINE PF 1% 2 ML VIAL IR PRN (07:30)
[2023-01-26] MEDS ORDERED: MOXIFLOXACIN OPHTH SOLN 5 MG/ML 0.5 ML SYRINGE OP ONE (07:30)
[2023-01-26] MEDS ORDERED: TETRACAINE 0.5% OPHTH SOLN 4 ML BTL (SINGLE DOSE ONLY) OU PRN (07:30)
[2023-01-26] MEDS ORDERED: POVIDONE IODINE OPHTH SOLN 5% 30 ML OP ONE (07:30)
[2023-01-26 07:40] VITALS: BP 153/73
[2023-01-26] MEDS: TROPICAMIDE 1% OPH SOLN (MYDRIACYL) 15 ML BTL OP SCH ×3 (07:43→08:00)
[2023-01-26] MEDS: PHENYLEPHRINE 10% OPHTH SOLN 5 ML BTL OU SCH ×3 (07:43→08:00)
[2023-01-26] MEDS: TETRACAINE 0.5% OPHTH SOLN 5 ML BTL OU PRN ×3 (07:45→07:51)
--- NOTE | 2023-01-26 08:20 | Ophthalmologist Pre-Op Note ---
Pre-Operative Progress Note H&P Reviewed The H&P was reviewed, patient examined and no changes noted. Date H&P Reviewed: Jan 26, 2023 Time H&P Reviewed: 08:19 Pre-Op Dx Cataract, Left Eye ELODIA CARDENAS MD Jan 26, 2023 08:19
[2023-01-26] MEDS ORDERED: MIDAZOLAM INJ 2 MG/2 ML VIAL ONE (08:23)
--- NOTE | 2023-01-26 08:41 | Ophthalmology Operative Report ---
Cataract removal/placement IOL PREOPERATIVE DIAGNOSIS: Cataract Left Eye POSTOPERATIVE DIAGNOSIS: Cataract Left Eye PROCEDURE: Cataract removal and placement of posterior chamber implant, left eye SURGEON: Alex Cardenas ANESTHESIA: Topical with sedation COMPLICATIONS: None ESTIMATED BLOOD LOSS: Minimal DESCRIPTION OF PROCEDURE: After proper informed consent was obtained, the patient, a 62 female, was taken to the Operating Room and the left eye was anesthetized with tetracaine. The left eye was then prepped and draped in the usual manner. A wire lid speculum was placed. A paracentesis was made at the left hand position. Preservative free lidocaine was injected into the anterior chamber followed by viscoelastic. A clear corneal incision was made in the temporal position. A capsulorrhexis was preformed and the central nuclear and cortical material were removed. The posterior capsule was polished and an Jamie 12.0 CNA0T0 was placed into the capsular bag. The residual viscoelastic was aspirated and balanced saline solution was injected into the anterior chamber. Moxifloxacin was injected into the anterior chamber. The wound was checked and found to be water tight. The patient tolerated the procedure well without complications. ALEX CARDENAS MD Jan 26, 2023 08:41
[2023-01-26 08:53] VITALS: BP 153/73
--- NOTE | 2023-01-26 12:44 | Anesthesia-General Post-Op ---
MAC Patient Condition Mental Status/LOC: Same as Preop Cardiovascular: Satisfactory Nausea/Vomiting: Absent Respiratory: Satisfactory Pain: Controlled Complications: Absent Post Op Complications Complications None Follow Up Care/Instructions Patient Instructions None needed. Anesthesiology Discharge Order Discharge Order Patient is doing well, no complaints, stable vital signs, no apparent adverse anesthesia problems. No complications reported per nursing. GAIL WILKERSON CRNA Jan 26, 2023 12:44
== END 2023-01-26 08:56 | disposition home or self-care (01) ==
LOC: SDC 07:15
PROVIDERS: ATTEND Specialist
DX: H25.9 Unspecified age-related cataract (principal)
CPT/HCPCS: 66984; V2632